=== PATIENT | male | born 1945 | race Caucasian/White ===

== ENCOUNTER 2016-08-05 09:01 | Inpatient (IN) ==
--- NOTE | 2016-08-04 21:04 | Discharge Summary ---
<Lucero Hastings - Last Filed: 08/05/16 09:46> Date of Encounter: 08/05/16 - Discharge Diagnosis (1) Arthritis of knee, right Priority: Primary Status: Acute (2) Cardiac pacemaker Priority: Secondary Status: Chronic (3) HTN (hypertension) Priority: Secondary Status: Chronic Qualifiers: Hypertension type: essential hypertension Qualified Code(s): I10 - Essential (primary) hypertension (4) Obesity Priority: Secondary Status: Acute Qualifiers: Obesity type: unspecified obesity type Obesity severity: unspecified obesity severity Qualified Code(s): E66.9 - Obesity, unspecified (5) DMII (diabetes mellitus, type 2) Priority: Secondary Status: Chronic Qualifiers: Diabetes mellitus complication status: with unspecified complications Diabetes mellitus penitentiary insulin use: unspecified petroleum 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 08/04/16 [Rx] OxyCODONE Immed Rel [Roxicodone 5 MG] 5 - 10 mg PO Q6HR PRN #40 tablet 08/04/16 [Rx] Aspirin 81 mg PO DAILY 08/05/16 [History] Atorvastatin Calcium [Lipitor] 20 mg PO HS 08/05/16 [History] Betamethasone Dipropionate 1 appl TP DAILY 08/05/16 [History] Cholecalciferol (D-3) [Vitamin D] 5,000 unit PO DAILY 08/05/16 [History] Fexofenadine/Pseudoephedrine [Ruth-D 24 Hour Tablet] 1 each PO DAILY PRN [History] GlipiZIDE [Glipizide Xl] 5 mg PO DAILY 08/05/16 [History] Irbesartan [Avapro] 75 mg PO DAILY 08/05/16 [History] OxyCODONE/APAP 5/325 [Percocet 5/325 MG] 1 each PO Q6HR PRN 08/05/16 [History] Ropinirole HCl [Requip] 0.25 mg PO HS 08/05/16 [History] Allergies/Adverse Reactions: Allergies Iodinated Contrast Media - Oral and Adverse Reaction (Verified 08/05/16 09:53) Rash meperidine Adverse Reaction (Verified 08/05/16 09:53) Difficulty Breathing morphine Adverse Reaction (Verified 08/05/16 09:53) Confusion Penicillins [PCN] Adverse Reaction (Verified 08/05/16 09:53) thrush Tetracycline Adverse Reaction (Verified 08/05/16 09:53) Nausea Primary care physician: Hortencia Guillen - Patient Status Disposition: Home, Self-Care Condition: Good - Discharge Instructions Follow Up With: Jesse Andrew MD [Partnered Physician] - 09/03/16 9:45 am Lucero Hastings PAC [Physician Bathing Suit Maker] - 08/14/16 11:00 am Thad Tomlin DO [Partnered Physician] - 11/08/16 2:55 pm Brayan Patel DO [Primary Care Provider] - 10/25/16 2:30 pm Tim Hernandez MD [Partnered Physician] - 10/11/16 10:45 am - Hospital Course Hospital course: Mr. Kaufman is a 70 year old male - Time Spent with Patient Total time spent providing and/or coordinating discharge services: <Jesse Andrew - Last Filed: 08/09/16 06:33> Date of Encounter: 08/09/16 Time of Encounter: 06:32 - Discharge Diagnosis (1) Arthritis of knee, right Priority: Primary Status: Acute (2) Obesity Priority: Secondary Status: Acute Qualifiers: Obesity type: unspecified obesity type Obesity severity: unspecified obesity severity Qualified Code(s): E66.9 - Obesity, unspecified (3) Cardiac pacemaker Priority: Secondary Status: Chronic (4) DMII (diabetes mellitus, type 2) Priority: Secondary Status: Chronic Qualifiers: Diabetes mellitus complication status: with unspecified complications 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 plant operator insulin use status Qualified Code(s): E11.8 - Type 2 diabetes mellitus with unspecified complications (5) HTN (hypertension) Priority: Secondary Status: Chronic Qualifiers: Hypertension type: essential hypertension Qualified Code(s): I10 - Essential (primary) hypertension (6) Thyroid disorder Priority: Secondary Status: Chronic (7) Acute blood loss anemia Priority: Primary Status: Acute Primary care physician: Hortencia Gulilen - Patient Status Functional capacity at discharge: uses cane/walker Overall status at discharge: patient is progressing back to baseline - Hospital Course Hospital course: Mr. Kaufman is a 70 year old male The patient had an uneventful postoperative course. They received antibiotics and physical therapy and were discharged in stable condition. There will follow -up in the office in 2 weeks. Patient had some postoperative bleeding which resolved discharge aspirin DVT prophylaxis - Time Spent with Patient Total time spent providing and/or coordinating discharge services:
--- NOTE | 2016-08-05 09:18 | History & Physical Report ---
Date of Encounter: 08/05/16 Time of Encounter: 09:18 24 Hour HP Update - Instructions Instructions: If the History and Physical is less than 30 days old and was completed prior to A.M. admission and or procedure and has NOT been updated on calendar day of procedure please complete this update prior to performing procedure. - Update Patient reports changes in Medical Condition: No Changes in assessment/condition: No Changes in Medication: No Preop tests/diagnostics Reviewed: Yes Surgery Remains Indicated: Yes Consent for Planned Operative Procedure(s) Verified: Yes - Pre-Operative Checklist Preoperative Checklist Indicated: No Prophylactic Antibiotic Ordered: Yes Is VTE Prophylaxis Indicated?: Yes
[2016-08-05] MEDS ORDERED: Clindamycin 900 MG/50 ML 900 MG/50 ML IV.SOLN IVPB ONE (09:20)
[2016-08-05] MEDS ORDERED: Ringers Solution, Lactated 1,000 ML IVC SCH ×2 (09:30→13:45)
[2016-08-05] MEDS ORDERED: Famotidine 20 MG/2 ML VIAL IVP ONE (10:16)
--- NOTE | 2016-08-05 10:19 | Anesthesia Evaluation PreOp ---
Date of Encounter: 08/05/16 Time of Encounter: 10:15 - Past History Planned Operation: Rt TKA Cardiac History: HTN, Hyperlipidemia, Arrhythmia (Suman Arrhythmia), Pacemaker/ ICD (Last interrogated ) Pulmonary History: Denies Any Significant HX BENEFITS SPECIALIST History: Denies Any Significant HX Other Medical History: Renal (CKD), Diabetes Type II (Accu check 111), GERD Anesthesia History: No Prior Anesthetic Complications Alcohol Use: none Drug use: none Medications and Allergies Allopurinol [Zyloprim 300 MG] 300 mg PO DAILY 07/20/15 [History] Levothyroxine [Synthroid] 100 mcg PO 0630 07/20/15 [History] Prochlorperazine Maleate [Compazine] 10 mg PO Q8HR PRN 07/20/15 [History] Aspirin Enteric Coated [Aspirin EC] 325 mg PO DAILY #21 tablet. 08/04/16 [Rx] OxyCODONE Immed Rel [Roxicodone 5 MG] 5 - 10 mg PO Q6HR PRN #40 tablet 08/04/16 [Rx] Aspirin 81 mg PO DAILY 08/05/16 [History] Atorvastatin Calcium [Lipitor] 20 mg PO HS 08/05/16 [History] Cholecalciferol (D-3) [Vitamin D] 5,000 unit PO DAILY 08/05/16 [History] Fexofenadine/Pseudoephedrine [Ruth-D 24 Hour Tablet] 1 each PO DAILY PRN [History] GlipiZIDE [Glipizide Xl] 5 mg PO DAILY 08/05/16 [History] Irbesartan [Avapro] 75 mg PO DAILY 08/05/16 [History] OxyCODONE/APAP 5/325 [Percocet 5/325 MG] 1 each PO Q6HR PRN 08/05/16 [History] Ropinirole HCl [Requip] 0.25 mg PO HS 08/05/16 [History] Allergies Iodinated Contrast Media - Oral and Adverse Reaction (Verified 08/05/16 09:53) Rash meperidine Adverse Reaction (Verified 08/05/16 09:53) Difficulty Breathing morphine Adverse Reaction (Verified 08/05/16 09:53) Confusion Penicillins [PCN] Adverse Reaction (Verified 08/05/16 09:53) thrush Tetracycline Adverse Reaction (Verified 08/05/16 09:53) Nausea - Meds/Allergy Pre-op Review Medications Reviewed: Yes Allergies Reviewed: Yes Beta Blockers on Current Med List: No Anesthesia Results - Labs Laboratory Tests 08/01/16 08/01/16 08/01/16 09:30 09:30 09:30 Hgb 14.5 Hct 43.4 Plt Count 199 PT 11.4 Sodium 141 Potassium 4.1 BUN 19 Creatinine 1.17 - Imaging EKG: report reviewed (Electronic Atrial Pacemaker) Anesthesia Exam O2 Sat Height 1.75 m Height 1.75 m Height 1.75 m Weight 105.233 kg Weight 105.233 kg Weight 105.233 kg O2 Sat by Pulse Oximetry 96 Vital Signs Temp Pulse Resp BP Pulse Ox 98.8 F 75 18 139/87 96 08/05/16 09:23 08/05/16 09:23 08/05/16 09:23 08/05/16 09:23 08/05/16 09:23 Height: 5'9 Weight: 232 lbs NPO (# of Hours): MN - HEENT Pupil (Motor): Pupils equal, EOMI Mallampati: II Teeth: Normal Oral Opening: Greater than 3 - BENEFITS SPECIALIST LOC: Oriented BENEFITS SPECIALIST Motor: Normal RUE, Normal LUE, Normal RLE, Normal LLE, Normal Face BENEFITS SPECIALIST Sensory: Normal: RUE, LUE, RLE, LLE, Face - Cardiac Rhythm: Regular Murmur: None JVD: No Carotid Bruit: No - Pulmonary Breath Sounds: bilateral Clear Respiratory Effort: Symmetrical Anesthesia Assess/Plan ASA Score: 3 (DM HTN Pacemaker) Modified Donald Scale for Level of Consciousness: Cooperative, oriented, and tranquil Anesthetic Plan: General, Regional Monitoring Plan: Standard Monitors Recovery Plan: PACU (Discussed GA and RSA, agrees to proceed)
[2016-08-05] MEDS ORDERED: *HR* Propofol 200 MG/20 ML VIAL IVP ONE (10:21)
[2016-08-05] MEDS ORDERED: *HR* FentaNYL (PF) 100 MCG/2 ML VIAL ONE ×2 (10:21→11:34)
[2016-08-05] MEDS ORDERED: *HR* Midazolam HCl 2 MG/2 ML VIAL ONE (10:21)
[2016-08-05] MEDS ORDERED: Tetracaine/PF 20 MG/2 ML AMPUL SPINA ONE (11:11)
--- NOTE | 2016-08-05 11:52 | Anesthesia Procedures ---
Date of Encounter: 08/05/16 Time of Encounter: :18 Procedures: Anesthesia - Nerve Block Procedure Date: 08/05/16 Time: 11:18 Surgical Procedure: right total knee Checklist: Correct Patient Identifier, Correct procedure, History checked Correct side: Right Blood Thinner: No Monitor Applied: EKG, BP, Pulse Oximetry Supplemental Oxygen via Nasal Cannula (L/min): 2 Sedation: Versed (mg): 2 Sedation: Fentanyl (mcg): 100 Indication: Post Op Analgesia Pre-op Neuro Deficits: No Block Type: Femoral Catheter placed: No Sterile Technique: Yes Ultrasound used: Yes Anatomy identified: Yes Visual spread of Local: Yes Neuro Stimulation: Yes Nerve Stimulator Range: 0.2 - 0.4 mA Blood on Needle Aspiration: No Smooth Injection of Local: Yes Pain with Injection of Local: No Prep: Chlorhexadine Needle: 22 x 50 mm Stimuplex Local: Ropivacaine (30ml 0.5%) Volume (cc): 30 Number of Attempts: 1 Complications: None/effective block Vitals: vss
--- NOTE | 2016-08-05 12:19 | Orthopedic Operative Note ---
Date of procedure: 08/05/16 Pre-op diagnosis: Right knee arthritis Post-op diagnosis: same Procedure: Procedure: Right Total knee replacement Estimated blood loss: 200 cc Hardware: Arthrex Femur: 7 Tibia: 7 PS insert:12 Patella:37 Exam Under anesthesia: Full motion anterior instability no posterior or varus or valgus Procedural Notes: Patient noted to have grade 3 arthritic changes medial compartment lateral compartment complete ACL tear. Operative procedure: The patient was brought to the operating room and placed on the operating room table. After general anesthesia was administered the operative knee was examined. Findings were noted in the exam under anesthesia. The operative extremity was prepped and draped in sterile surgical fashion. The patient received IV antibiotics prior to skin incision. A standard midline incision was made centered over the patella. The incision was made through the skin and subcutaneous tissue. A medial parapatellar tendon approach was performed. Care was taken to preserve tissue along the medial aspect of the patella. And to protect the patella tendon. The deep MCL was released off the medial tibia. The infra patella fat pad was excised. Knee was brought into flexion. Patient noted to have grade 3 arthritic changes medial compartment lateral compartment. The entry hole was made for the intramedullary femoral guide. The guide was seated in 6 degrees of valgus. Anterior cut was made followed by the distal cut. The ACL was torn the PCL the medial and the lateral menisci were excised. The tibia was subluxed forward. The entry hole was made for the intramedullary tibial guide. Guide was seated to resect 2 mm off the more abnormal side. The knee was brought into flexion the distal femur was sized to a 7. The femoral guide was seated, the anterior cut was made followed by the posterior condylar cut, followed by the chamfer cuts. The finishing guide was seated the box cut was made and the lug holes were drilled. The tibia was sized to a 7, the tibial tray was seated and prepared with the large drill followed by the fin cutter. Trial reduction revealed full extension no varus valgus instability with the appropriate 12 PS [place]. The patella was everted and cut was made at the level of the insertion of the quadriceps and patella tendon. The patella was sized to a 40 the guide was seated and the lug holes are drilled. Trial reduction revealed excellent patella tracking. All trial components were removed all bony surfaces were irrigated. The tibia was cemented first followed by the femur. The 12 PS [place] was seated and the knee was brought into full extension. The patella was cemented and held in place with the patellar holding clamp. After the cement had hardened, the knee sat for 2 minutes with a Betadine saline solution. The knee was then irrigated out with 2 L of pulse irrigation. The extensor mechanism was closed with #2 FiberWire suture and #2 PDS suture. The subcutaneous tissue was then irrigated and closed deep with #1 PDS suture superficially with 0 PDS suture and skin was closed with skin raj and Dermabond. The patient was then placed in a sterile dressing and a postoperative brace extubated and transferred to recovery room in stable condition. Anesthesia: RODRI Surgeon: Jesse Andrew Gps Navigation Installer: Lucero Hastings Condition: stable Disposition: PACU
[2016-08-05] MEDS ORDERED: Ondansetron 4 MG/2 ML VIAL ONE (12:29)
[2016-08-05] MEDS ORDERED: Dexamethasone 4 MG/ML VIAL ONE (12:29)
[2016-08-05] MEDS: *HR* HYDROmorphone (PF) 1 MG/ML SYRINGE IVP PRN ×5 (12:59→16:05)
[2016-08-05 13:08] LABS: Hemoglobin 13.5 g/dL (12.9-16.9)
[2016-08-05] MEDS ORDERED: Loratadine/Pseudophed (12 HR) 1 EACH TABLET PO PRN (13:45)
[2016-08-05] MEDS ORDERED: D5% in Water 1,000 ML IV PRN (13:45)
[2016-08-05] MEDS ORDERED: Temazepam 15 MG CAPSULE PO PRN (13:45)
[2016-08-05] MEDS ORDERED: *HR* OxyCODONE Immed Rel 5 MG TABLET PO PRN (13:45)
[2016-08-05] MEDS ORDERED: Albuterol Neb 1.25 MG/3 ML VIAL IH ONE (13:45)
[2016-08-05] MEDS ORDERED: Acetaminophen 325 MG TABLET PO PRN (13:45)
[2016-08-05] MEDS ORDERED: Dextrose Gel 15 GM PO PRN ×2 (13:45)
[2016-08-05] MEDS ORDERED: Naloxone 0.4 MG/ML INJ IVP PRN (13:45)
[2016-08-05] MEDS ORDERED: Sennosides 8.6 MG TABLET PO PRN (13:45)
[2016-08-05] MEDS ORDERED: *HR* Dextrose 50 % in Water (Syg) 50 ML SYRINGE IVP PRN (13:45)
[2016-08-05] MEDS ORDERED: MOM Conc 10 ML UD.LIQ PO PRN (13:45)
--- NOTE | 2016-08-05 14:00 | Anesthesia Evaluation Post Op ---
Date of Encounter: 08/05/16 Time of Encounter: 14:00 - Vital Signs Vital Signs: Vital Signs/O2 Sat/Glucose, Most Current Temp Pulse Resp BP Pulse Ox 08/05/16 13:50 97.3 F L 60 16 133/67 96 08/05/16 13:42 60 16 123/71 97 08/05/16 13:32 60 16 123/68 97 08/05/16 13:22 97.3 F L 60 16 124/66 96 08/05/16 13:12 60 16 129/73 96 08/05/16 12:52 61 16 133/68 96 08/05/16 12:42 97.3 F L 68 16 138/68 96 08/05/16 11:24 62 13 140/80 95 08/05/16 11:06 67 16 150/83 95 - Lungs Lungs: Clear Ascult./Percussion - Airway Airway: Non-obstructed - Cardiovascular Regular Rate - Mental Status Mental Status: Alert & Oriented, Answers Appropriately - Pain Pain Scale: 1 - Nausea Vomiting Nausea Vomiting: Not Present - Hydration Hydration: Ice chips - Discharge PostOp Status: Transfer Patient to floor
[2016-08-05] MEDS: Insulin LISPRO 300 UNITS/3 ML VIAL SQ SCH ×2 (14:36→17:26)
[2016-08-05] MEDS: *HR* OxyCODONE Immed Rel 5 MG TABLET PO PRN ×3 (14:40→23:03)
[2016-08-05] MEDS: *HR* Enoxaparin 30 MG/0.3 ML SYRINGE SQ SCH (17:26)
[2016-08-05] MEDS ORDERED: *HR* Enoxaparin 30 MG/0.3 ML SYRINGE SQ SCH (18:00)
[2016-08-05] MEDS: rOPINIRole 0.25 MG TABLET PO SCH (20:26)
[2016-08-05] MEDS: Clindamycin 900 MG/50 ML 900 MG/50 ML IV.SOLN IVPB SCH (20:27)
[2016-08-06] MEDS: *HR* HYDROmorphone (PF) 1 MG/ML SYRINGE IVP PRN ×5 (00:19→20:44)
[2016-08-06] MEDS: *HR* OxyCODONE Immed Rel 5 MG TABLET PO PRN ×5 (03:09→22:07)
[2016-08-06] MEDS: Clindamycin 900 MG/50 ML 900 MG/50 ML IV.SOLN IVPB SCH (03:09)
[2016-08-06] MEDS: *HR* Enoxaparin 30 MG/0.3 ML SYRINGE SQ SCH ×2 (05:11→17:10)
[2016-08-06 06:15] LABS: Hematocrit 36.2 % (37.5-50.1); Hemoglobin 11.9 g/dL (12.9-16.9)
--- NOTE | 2016-08-06 06:40 | Orthopedics Progress Note ---
Date of Encounter: 08/06/16 Time of Encounter: 06:40 - Assessment and Plan (1) Arthritis of knee, right Current Visit: Yes Status: Acute (2) Obesity Current Visit: Yes Status: Acute Qualifiers: Obesity type: unspecified obesity type Obesity severity: unspecified obesity severity Qualified Code(s): E66.9 - Obesity, unspecified (3) Cardiac pacemaker Current Visit: Yes Status: Chronic (4) DMII (diabetes mellitus, type 2) Current Visit: Yes Status: Chronic Qualifiers: Diabetes mellitus complication status: with unspecified complications Diabetes mellitus group home insulin use: unspecified group home insulin use status Qualified Code(s): E11.8 - Type 2 diabetes mellitus with unspecified complications (5) HTN (hypertension) Current Visit: Yes Status: Chronic Qualifiers: Hypertension type: essential hypertension Qualified Code(s): I10 - Essential (primary) hypertension (6) Thyroid disorder Current Visit: Yes Status: Chronic Subjective Interval history: Patient was seen this morning doing well without complaints. Afebrile vital signs stable. Operative extremity: Neurovascularly intact Dressing clean dry and intact Calves nontender Assessment and plan: Continue with postoperative care hematocrit 36 Objective Vital signs: Vital Signs Temp Pulse Resp BP Pulse Ox 08/06/16 06:32 98.2 F 70 16 119/65 93 L 08/06/16 03:54 98.3 F 74 16 121/67 98 08/05/16 23:58 98.1 F 76 16 126/67 98 08/05/16 20:00 98.4 F 71 16 103/60 94 L 08/05/16 18:50 95 08/05/16 17:40 16 97 08/05/16 16:41 16 97 08/05/16 16:03 97.9 F 72 16 134/75 95 08/05/16 15:20 97.8 F 69 18 129/72 95 08/05/16 14:35 97.8 F 63 14 117/61 95 08/05/16 14:05 98.1 F 62 14 125/71 98 08/05/16 13:50 97.3 F L 60 16 133/67 96 08/05/16 13:42 60 16 123/71 97 08/05/16 13:32 60 16 123/68 97 08/05/16 13:22 97.3 F L 60 16 124/66 96 08/05/16 13:12 60 16 129/73 96 08/05/16 12:52 61 16 133/68 96 08/05/16 12:42 97.3 F L 68 16 138/68 96 08/05/16 11:24 62 13 140/80 95 08/05/16 11:06 67 16 150/83 95 08/05/16 09:23 98.8 F 75 18 139/87 96 Intake and Output 08/05/16 08/05/16 08/06/16 15:59 23:59 07:59 Intake Total 50 / 50 350 / 350 50 / 50 Output Total 200 / 200 Balance -150 / -150 350 / 350 50 / 50 Intake: IV Fluids 50 / 50 50 / 50 50 / 50 Cleocin 900 MG/50 ML 900 50 / 50 50 / 50 50 / 50 mg In 50 ml @ 50 mls/hr IVPB Q8H [facility] Rx#: [id number] Oral 300 / 300 Output: Estimated Blood Loss 200 / 200 Other: Meal Dinner Percent of Meal Consumed 25% Weight 105.233 kg Blood Glucose* 114 194 - Labs CBC & BMP: 08/06/16 05:19 Labs: Abnormal lab results Hgb 11.9 g/dL (12.9-16.9) L D 08/06/16 05:19 Hct 36.2 % (37.5-50.1) L 08/06/16 05:19 POC Glucose 194 (58-89) H 08/05/16 19:45 - VTE Documentation of Mechanical Device: Venous foot pump, device Consult Discharge Plan - Plan Referrals: Brayan Patel DO [Primary Care Provider] -
[2016-08-06 06:58] LABS: BUN/Creatinine Ratio 20 (6-26); Blood Urea Nitrogen 25 mg/dL (8-26); Calcium 9.1 mg/dL (8.6-10.8); Carbon Dioxide 22 mEq/L (19-29); Chloride 105 mEq/L (98-109); Glucose 159 mg/dL (70-99); Osmolality,Calculated 290 (280-300); Potassium 4.4 mEq/L (3.5-4.5); Sodium 136 mEq/L (136-145); eGFR For African Americans > 60 (> 60); eGFR For Non-African Americans 56 (> 60)
[2016-08-06] MEDS: Insulin LISPRO 300 UNITS/3 ML VIAL SQ SCH ×3 (09:22→18:23)
[2016-08-06] MEDS: *HR* GlipiZIDE XL (24 HR) 2.5 MG TABLET PO SCH (09:52)
[2016-08-06] MEDS: Cholecalciferol (D-3) 1,000 UNIT TABLET PO SCH (09:52)
[2016-08-06] MEDS: Aspirin 81 MG TAB.CHEW PO SCH (09:53)
[2016-08-06] MEDS: BETAMETHASONE DIPROPIONATE TP SCH (09:55)
[2016-08-06] MEDS: rOPINIRole 0.25 MG TABLET PO SCH (20:45)
[2016-08-07] MEDS: *HR* OxyCODONE Immed Rel 5 MG TABLET PO PRN ×4 (03:49→20:37)
[2016-08-07] MEDS: *HR* HYDROmorphone (PF) 1 MG/ML SYRINGE IVP PRN ×5 (05:00→22:58)
[2016-08-07] MEDS: *HR* Enoxaparin 30 MG/0.3 ML SYRINGE SQ SCH ×2 (05:01→17:54)
[2016-08-07 05:02] LABS: Bilirubin,Urine Negative (Negative); Blood,Urine Negative (Negative); Clarity,Urine Clear (Clear); Color,Urine Yellow (Yellow); Glucose,Urine (UA) Normal (Normal); Ketones,Urine Negative (Negative); Leukocyte Esterase,Urine Negative (Negative); Nitrite,Urine Negative (Negative); PH,Urine 5.5 pH Units (5.0-8.0); Protein,Urine Negative (Neg-Trace); Specific Gravity,Urine 1.022 (1.010-1.025); Urobilinogen,Urine Normal (Normal)
[2016-08-07 06:44] LABS: Basophils # 0.1 K/mcL (0.0-0.2); Basophils % 0.4 %; Eosinophils # 0.1 K/mcL (0.0-0.6); Eosinophils % 0.9 %; Hemoglobin 10.7 g/dL (12.9-16.9); Immature Granulocytes % 0.4 % (0-4); Lymphocytes # 2.2 K/mcL (0.6-4.6); Mean Corpuscular HGB Conc 32.4 g/dL (31.6-35.5); Mean Corpuscular Hemoglobin 30.2 pg (28.0-33.3); Mean Corpuscular Volume 93.2 fL (83.0-100.0); Mean Platelet Volume 11.7 fL (9.4-12.4); Monocytes # 1.7 K/mcL (0.0-1.3); Monocytes % 12.6 %; Neutrophils # 9.5 K/mcL (1.6-8.9); Platelet Count 142 K/mcL (140-400); Red Blood Count 3.54 M/mcL (4.19-5.50); Red Cell Distribution Width 14.4 % (11.5-14.5); Segmented Neutrophils % 69.7 %
[2016-08-07 06:53] LABS: BUN/Creatinine Ratio 22 (6-26); Blood Urea Nitrogen 26 mg/dL (8-26); Carbon Dioxide 23 mEq/L (19-29); Chloride 106 mEq/L (98-109); Glucose 141 mg/dL (70-99); Osmolality,Calculated 293 (280-300); Potassium 4.2 mEq/L (3.5-4.5); Sodium 138 mEq/L (136-145); eGFR For African Americans > 60 (> 60); eGFR For Non-African Americans > 60 (> 60)
--- NOTE | 2016-08-07 07:45 | Orthopedics Progress Note ---
Date of Encounter: 08/07/16 Time of Encounter: 07:45 - Assessment and Plan (1) Arthritis of knee, right Current Visit: Yes Status: Acute (2) Obesity Current Visit: Yes Status: Acute Qualifiers: Obesity type: unspecified obesity type Obesity severity: unspecified obesity severity Qualified Code(s): E66.9 - Obesity, unspecified (3) Cardiac pacemaker Current Visit: Yes Status: Chronic (4) DMII (diabetes mellitus, type 2) Current Visit: Yes Status: Chronic Qualifiers: Diabetes mellitus complication status: with unspecified complications Diabetes mellitus fci insulin use: unspecified fci insulin use status Qualified Code(s): E11.8 - Type 2 diabetes mellitus with unspecified complications (5) HTN (hypertension) Current Visit: Yes Status: Chronic Qualifiers: Hypertension type: essential hypertension Qualified Code(s): I10 - Essential (primary) hypertension (6) Thyroid disorder Current Visit: Yes Status: Chronic Subjective Interval history: Patient was seen this morning doing well without complaints. Afebrile vital signs stable. Operative extremity: Neurovascularly intact Dressing clean dry and intact Calves nontender Assessment and plan: Continue with postoperative care hematocrit 33 Objective Vital signs: Vital Signs Temp Pulse Resp BP Pulse Ox 08/07/16 07:11 98.7 F 69 16 150/65 94 L 08/07/16 03:55 99.7 F H 65 16 145/67 95 08/07/16 00:00 100.4 F H 70 15 124/57 91 L 08/06/16 22:09 102.2 F H 68 16 136/62 94 L 08/06/16 21:10 102.6 F H 70 71 121/60 94 L 08/06/16 18:51 99.5 F 08/06/16 16:00 100.6 F H 67 18 140/69 94 L 08/06/16 10:57 98.2 F 75 16 114/60 93 L Intake and Output 08/06/16 08/06/16 08/07/16 15:59 23:59 07:59 Intake Total 1000 / 1000 Balance 1000 / 1000 Intake: IV Fluids 1000 / 1000 Lactated Ringers 1,000 ML 1000 / 1000 @ 75 mls/hr IVC .[id number] [facility] Rx#:[id number] Other: Blood Glucose* 149 141 161 - Labs CBC & BMP: 08/07/16 06:18 08/07/16 06:18 Labs: Abnormal lab results WBC 13.6 K/mcL (4.3-11.1) H 08/07/16 06:18 RBC 3.54 M/mcL (4.19-5.50) L 08/07/16 06:18 Hgb 10.7 g/dL (12.9-16.9) L 08/07/16 06:18 Hct 33.0 % (37.5-50.1) L 08/07/16 06:18 Neutrophils # 9.5 K/mcL (1.6-8.9) H 08/07/16 06:18 Monocytes # 1.7 K/mcL (0.0-1.3) H 08/07/16 06:18 Glucose 141 mg/dL (70-99) H 08/07/16 06:18 POC Glucose 141 (58-89) H 08/06/16 21:13 - VTE Documentation of Mechanical Device: Venous foot pump, device Consult Discharge Plan - Plan Referrals: Jesse Andrew MD [Partnered Physician] - 09/03/16 9:45 am Lucero Hastings PAC [Physician Stopperer Assembler] - 08/14/16 11:00 am Thad Tomlin DO [Partnered Physician] - 11/08/16 2:55 pm Brayan Patel DO [Primary Care Provider] - 10/25/16 2:30 pm Tim Hernandez MD [Partnered Physician] - 10/11/16 10:45 am
[2016-08-07] MEDS: Aspirin 81 MG TAB.CHEW PO SCH (08:11)
[2016-08-07] MEDS: Insulin LISPRO 300 UNITS/3 ML VIAL SQ SCH ×3 (08:11→17:54)
[2016-08-07] MEDS: Cholecalciferol (D-3) 1,000 UNIT TABLET PO SCH (08:11)
[2016-08-07] MEDS: BETAMETHASONE DIPROPIONATE TP SCH (08:12)
[2016-08-07] MEDS: *HR* GlipiZIDE XL (24 HR) 2.5 MG TABLET PO SCH (08:12)
[2016-08-07] MEDS: Ondansetron 4 MG/2 ML VIAL IVP PRN (09:08)
[2016-08-07] MEDS: rOPINIRole 0.25 MG TABLET PO SCH (20:38)
[2016-08-08] MEDS: *HR* OxyCODONE Immed Rel 5 MG TABLET PO PRN ×4 (02:23→18:30)
[2016-08-08] MEDS: *HR* Enoxaparin 30 MG/0.3 ML SYRINGE SQ SCH (05:39)
[2016-08-08] MEDS: *HR* HYDROmorphone (PF) 1 MG/ML SYRINGE IVP PRN ×3 (06:32→21:08)
[2016-08-08] MEDS: BETAMETHASONE DIPROPIONATE TP SCH (07:41)
[2016-08-08] MEDS: Aspirin 81 MG TAB.CHEW PO SCH (07:41)
[2016-08-08] MEDS: *HR* GlipiZIDE XL (24 HR) 2.5 MG TABLET PO SCH (07:41)
[2016-08-08] MEDS: Cholecalciferol (D-3) 1,000 UNIT TABLET PO SCH (07:41)
[2016-08-08] MEDS: Insulin LISPRO 300 UNITS/3 ML VIAL SQ SCH ×3 (07:42→16:58)
--- NOTE | 2016-08-08 08:22 | Orthopedics Progress Note ---
Date of Encounter: 08/08/16 Time of Encounter: 08:21 - Assessment and Plan (1) Arthritis of knee, right Current Visit: Yes Status: Acute (2) Obesity Current Visit: Yes Status: Acute Qualifiers: Obesity type: unspecified obesity type Obesity severity: unspecified obesity severity Qualified Code(s): E66.9 - Obesity, unspecified (3) Cardiac pacemaker Current Visit: Yes Status: Chronic (4) DMII (diabetes mellitus, type 2) Current Visit: Yes Status: Chronic Qualifiers: Diabetes mellitus complication status: with unspecified complications Diabetes mellitus prison insulin use: unspecified prison insulin use status Qualified Code(s): E11.8 - Type 2 diabetes mellitus with unspecified complications (5) HTN (hypertension) Current Visit: Yes Status: Chronic Qualifiers: Hypertension type: essential hypertension Qualified Code(s): I10 - Essential (primary) hypertension (6) Thyroid disorder Current Visit: Yes Status: Chronic (7) Acute blood loss anemia Current Visit: Yes Status: Acute Subjective Interval history: Patient was seen this morning with significant bleeding no new injury Afebrile vital signs stable. Operative extremity: Neurovascularly intact Bloody drainage midpole of incision staple added Calves nontender Assessment and plan: Continue with postoperative care check H&H Objective Vital signs: Vital Signs Temp Pulse Resp BP Pulse Ox 08/08/16 07:23 97.9 F 65 16 128/58 94 L 08/08/16 03:51 99.2 F 65 18 150/67 93 L 08/07/16 23:32 99.8 F H 67 18 160/55 93 L 08/07/16 19:03 99.4 F 75 18 158/67 94 L 08/07/16 15:46 98.0 F 72 18 137/68 75 L 08/07/16 11:05 64 16 146/66 94 L Intake and Output 08/07/16 08/08/16 08/08/16 23:59 07:59 15:59 Intake Total 470 / 470 0 / 0 Output Total 0 / 0 Balance 470 / 470 0 / 0 Intake: Oral 470 / 470 0 / 0 Output: Urine 0 / 0 Other: Meal Dinner Percent of Meal Consumed 30% # Voids 1 Blood Glucose* 129 146 - Labs CBC & BMP: 08/07/16 06:18 08/07/16 06:18 Labs: Abnormal lab results WBC 13.6 K/mcL (4.3-11.1) H 08/07/16 06:18 RBC 3.54 M/mcL (4.19-5.50) L 08/07/16 06:18 Hgb 10.7 g/dL (12.9-16.9) L 08/07/16 06:18 Hct 33.0 % (37.5-50.1) L 08/07/16 06:18 Neutrophils # 9.5 K/mcL (1.6-8.9) H 08/07/16 06:18 Monocytes # 1.7 K/mcL (0.0-1.3) H 08/07/16 06:18 Glucose 141 mg/dL (70-99) H 08/07/16 06:18 POC Glucose 129 (58-89) H 08/07/16 20:41 - VTE Documentation of Mechanical Device: Venous foot pump, device Consult Discharge Plan - Plan Referrals: Jesse Adnrew MD [Partnered Physician] - 09/03/16 9:45 am Lucero Hastings PAC [Physician Full Stack Engineer] - 08/14/16 11:00 am Thad Tomlin DO [Partnered Physician] - 11/08/16 2:55 pm Brayan Patel DO [Primary Care Provider] - 10/25/16 2:30 pm Tim Hernandez MD [Partnered Physician] - 10/11/16 10:45 am
[2016-08-08 08:39] LABS: Hematocrit 31.8 % (37.5-50.1); Hemoglobin 10.4 g/dL (12.9-16.9)
[2016-08-08] MEDS: Ondansetron 4 MG/2 ML VIAL IVP PRN ×2 (10:40→18:33)
[2016-08-08] MEDS: rOPINIRole 0.25 MG TABLET PO SCH (21:08)
--- NOTE | 2016-08-09 06:34 | Orthopedics Progress Note ---
Date of Encounter: 08/09/16 Time of Encounter: 06:33 - Assessment and Plan (1) Arthritis of knee, right Current Visit: Yes Status: Acute (2) Obesity Current Visit: Yes Status: Acute Qualifiers: Obesity type: unspecified obesity type Obesity severity: unspecified obesity severity Qualified Code(s): E66.9 - Obesity, unspecified (3) Cardiac pacemaker Current Visit: Yes Status: Chronic (4) DMII (diabetes mellitus, type 2) Current Visit: Yes Status: Chronic Qualifiers: Diabetes mellitus complication status: with unspecified complications Diabetes mellitus nursing home insulin use: unspecified nursing home insulin use status Qualified Code(s): E11.8 - Type 2 diabetes mellitus with unspecified complications (5) HTN (hypertension) Current Visit: Yes Status: Chronic Qualifiers: Hypertension type: essential hypertension Qualified Code(s): I10 - Essential (primary) hypertension (6) Thyroid disorder Current Visit: Yes Status: Chronic (7) Acute blood loss anemia Current Visit: Yes Status: Acute Subjective Interval history: Patient was seen this morning with significant bleeding no new injury Afebrile vital signs stable. Operative extremity: Neurovascularly intact Dressing clean dry and intact Calves nontender Assessment and plan: Continue with postoperative care hematocrit 31 discharged today Objective Vital signs: Vital Signs Temp Pulse Resp BP Pulse Ox 08/09/16 00:10 99.0 F 66 17 155/72 94 L 08/08/16 20:00 99.5 F 75 16 149/64 96 08/08/16 15:04 99.9 F H 67 18 146/60 98 08/08/16 11:13 99.2 F 62 16 147/66 93 L 08/08/16 07:23 97.9 F 65 16 128/58 94 L Intake and Output 08/08/16 08/08/16 08/09/16 15:59 23:59 07:59 Intake Total 240 / 240 350 / 350 Output Total 275 / 275 Balance 240 / 240 75 / 75 Intake: Oral 240 / 240 350 / 350 Output: Urine 275 / 275 Other: Meal Breakfast Percent of Meal Consumed 95% # Voids 2 Blood Glucose* 119 120 - Labs CBC & BMP: 08/08/16 08:30 08/07/16 06:18 Labs: Abnormal lab results WBC 13.6 K/mcL (4.3-11.1) H 08/07/16 06:18 RBC 3.54 M/mcL (4.19-5.50) L 08/07/16 06:18 Hgb 10.4 g/dL (12.9-16.9) L 08/08/16 08:30 Hct 31.8 % (37.5-50.1) L 08/08/16 08:30 Neutrophils # 9.5 K/mcL (1.6-8.9) H 08/07/16 06:18 Monocytes # 1.7 K/mcL (0.0-1.3) H 08/07/16 06:18 Glucose 141 mg/dL (70-99) H 08/07/16 06:18 POC Glucose 120 (58-89) H 08/08/16 20:45 - VTE Documentation of Mechanical Device: Venous foot pump, device Consult Discharge Plan - Plan Referrals: Jesse Andrew MD [Partnered Physician] - 09/03/16 9:45 am Lucero Hastings PAC [Physician Tray Server] - 08/14/16 11:00 am Thad Tomlin DO [Partnered Physician] - 11/08/16 2:55 pm Brayan Patel DO [Primary Care Provider] - 10/25/16 2:30 pm Tim Hernandez MD [Partnered Physician] - 10/11/16 10:45 am
[2016-08-09] MEDS: Insulin LISPRO 300 UNITS/3 ML VIAL SQ SCH (07:24)
[2016-08-09] MEDS: *HR* GlipiZIDE XL (24 HR) 2.5 MG TABLET PO SCH (07:56)
[2016-08-09] MEDS: Cholecalciferol (D-3) 1,000 UNIT TABLET PO SCH (07:56)
[2016-08-09] MEDS: Aspirin 81 MG TAB.CHEW PO SCH (07:57)
[2016-08-09] MEDS: *HR* OxyCODONE Immed Rel 5 MG TABLET PO PRN ×2 (07:57→11:45)
[2016-08-09] MEDS: BETAMETHASONE DIPROPIONATE TP SCH (08:01)
[2016-08-09 08:54] LABS: Hematocrit 31.6 % (37.5-50.1); Hemoglobin 10.2 g/dL (12.9-16.9)
[2016-08-09 09:08] LABS: BUN/Creatinine Ratio 20 (6-26); Blood Urea Nitrogen 24 mg/dL (8-26); Calcium 9.6 mg/dL (8.6-10.8); Carbon Dioxide 24 mEq/L (19-29); Chloride 105 mEq/L (98-109); Glucose 142 mg/dL (70-99); Osmolality,Calculated 296 (280-300); Potassium 3.9 mEq/L (3.5-4.5); Sodium 140 mEq/L (136-145); eGFR For African Americans > 60 (> 60); eGFR For Non-African Americans 59 (> 60)
[2016-08-09 11:16] VITALS: BP 154/68
== END 2016-08-09 12:31 | disposition home or self-care (01) | DRG 470 ==
LOC: SAMDAY 09:01 → 3NENU 13:47
PROVIDERS: ADMIT Orthopaedic Surgery; ATTEND Orthopaedic Surgery

== ENCOUNTER 2017-10-29 04:18 | Observation (INO) ==
[2017-10-29] MEDS ORDERED: Aspirin 81 MG TAB.CHEW PO ONE (04:22)
--- NOTE | 2017-10-29 04:51 | Emergency Department Note ---
Disposition Clinical Impression: Chest pain, rule out acute myocardial infarction Disposition: Admitted As Inpatient Condition: Fair Referrals: Brayan Patel DO [Primary Care Provider] - Forms: ED Satisfaction Letter Time of Disposition: 04:52 Chest Pain HPI - General Chief Complaint: ED Chest Pain Stated Complaint: chest pain Time Seen by Provider: 10/29/17 04:22 Source: patient Limitations: no limitations - History of Present Illness HPI Narrative: Alert and oriented nontoxic-appearing 72-year-old male presents for evaluation of nonradiating substernal chest pain. He states his symptoms began approximately one week ago. This past Friday, he presented to [facility] emergency department in [place] for evaluation of this pain. At that time, he underwent laboratory workup including to repeat cardiac enzyme levels which she states normal. He was discharged home with a diagnosis of gastroesophageal reflux disorder and started on Protonix and Carafate. He states that the pain has remained consistent ever since. He states absolutely no relief from the aforementioned medications. He complains of being slightly nauseated but denies any vomiting. He denies any pleuritic component to this chest pain. He does complain of a cough that is productive of scant amounts of clear sputum but denies any hemoptysis. He denies any swelling of the lower extremities. He denies any shortness of breath. He states that after he was awoken by his dog earlier this morning, the pain did increase in severity above and beyond what it had been for the past one week. He denies any known aggravating or alleviating factors. Pt complaint: chest pain Onset (ago): week(s) (1 week) Duration: constant Pain Location: substernal Severity: mild Severity scale (1-10): 1 Quality: heaviness Pain Radiation: none Improves with: nothing Worsens with: nothing Associated symptoms: Reports: nausea, cough. Denies: vomiting, diaphoresis, dyspnea, palpitations, fever Treatments prior to arrival chest pain: other - Related Data Home Medications Medication Instructions Recorded Confirmed Allopurinol [Zyloprim 300 MG] 300 mg PO DAILY 07/20/15 10/29/17 Levothyroxine [Synthroid] 100 mcg PO 0630 07/20/15 10/29/17 Prochlorperazine Maleate 10 mg PO Q8HR PRN 07/20/15 10/29/17 [Compazine] GlipiZIDE [Glipizide Xl] 5 mg PO DAILY 08/05/16 10/29/17 OxyCODONE/APAP 5/325 [Percocet 1 each PO Q6HR PRN 08/05/16 10/29/17 5/325 MG] Ropinirole HCl [Requip] 0.25 mg PO HS 08/05/16 10/29/17 Atorvastatin [Lipitor] 40 mg PO HS 09/27/16 10/29/17 FLUoxetine HCl [Prozac] 20 mg PO DAILY 09/27/16 10/29/17 Aspirin [Adult Aspirin Regimen] 81 mg PO DAILY 10/29/17 10/29/17 Losartan [Cozaar] 25 mg PO DAILY 10/29/17 10/29/17 Allergies Allergy/AdvReac Type Severity Reaction Status Date / Time Iodinated Contrast- Oral and AdvReac Rash Verified 09/27/16 07:24 IV Dye meperidine AdvReac Difficulty Verified 09/27/16 07:24 Breathing morphine AdvReac Confusion Verified 09/27/16 07:24 Penicillins [PCN] AdvReac thrush Verified 09/27/16 07:24 Tetracycline AdvReac Nausea Verified 09/27/16 07:24 All systems ED: reviewed and negative except as stated. Constitutional: Denies: fever, chills, weakness, weight change Eyes: Denies: eye pain, eye discharge, vision change ENT ED: Denies: ear pain, throat pain, dental pain, hearing loss, epistaxis, congestion, dysphagia Cardiovascular: Reports: as per HPI, chest pain. Denies: palpitations, dyspnea on exertion, edema, syncope Respiratory: Reports: as per HPI, cough, sputum production. Denies: dyspnea, wheezes, hemoptysis, stridor Gastrointestinal: Reports: as per HPI, nausea. Denies: abdominal pain, vomiting , diarrhea, constipation, hematemesis, melena, hematochezia Genitourinary: Denies: urgency, dysuria, frequency, hematuria Musculoskeletal: Denies: back pain, neck pain, arthralgia, myalgia Integumentary: Denies: rash, abrasion, lesions Neurological: Denies: headache, weakness, numbness, paresthesias, confusion, abnormal gait, vertigo Psychiatric: Denies: anxiety, depression, suicidal thoughts, homicidal thoughts , auditory hallucinations, visual hallucinations Endocrine: Denies: fatigue Hematological/Lymphatic: Denies: easy bleeding, easy bruising Allergic/Immunologic: Denies: facial swelling, urticaria Chest Pain PMH - Past Medical History Medical history: Reports: arthritis, coronary artery disease, diabetes, fibromyalgia, GERD, hyperlipidemia, hypertension, renal disease, thyroid disease Surgical history: Reports: appendectomy, cholecystectomy, pacemaker Psychiatric history: Reports: no psych history - Social History Smoking Status: Never smoker Alcohol use: Reports: none Drug use: Reports: none Physical Exam - General Limitations: no limitations General appearance: alert, in no apparent distress - Head Head exam: atraumatic, normocephalic, normal inspection - Eye Eye exam: Present: normal appearance, PERRL, EOMI. Absent: nystagmus - ENT ENT exam: mucous membranes moist - Neck Neck exam: Present: normal inspection, full ROM, trachea midline - Chest Chest inspection: Present: normal inspection, symmetric chest wall rise. Absent : tenderness - Respiratory Respiratory exam: Present: normal lung sounds bilaterally. Absent: respiratory distress, wheezes, stridor, accessory muscle use, prolonged expiratory phase - Cardiovascular Cardiovascular exam: Present: regular rate, normal rhythm, normal heart sounds - Abdominal Exam Abdominal exam: Present: soft, Non-Tender, normal bowel sounds - Extremities Exam Extremities exam: Present: normal inspection, full ROM. Absent: tenderness, pedal edema - Neurological Exam Neurological exam: Present: alert, oriented X3 - Psychiatric Psychiatric exam: Present: normal affect, normal mood - Skin Skin exam: Present: warm, dry, intact, normal color. Absent: rash Course Course Narrative: I spoke with Dr. Harding of the Hospital services accepted the patient for admission for further evaluation and treatment this patient's chest pain. I have discussed this plan with Dr. De Los Santos. Dr. De Los Santos has had a face-to- face evaluation with the patient and agrees with this plan. Vital Signs Temperature 98.5 F 10/29/17 04:19 Pulse Rate 80 10/29/17 04:19 Respiratory Rate 18 10/29/17 04:19 Blood Pressure 179/93 10/29/17 04:19 O2 Sat by Pulse Oximetry 96 10/29/17 04:19 Temperature 98.5 F 10/29/17 04:19 Pulse Rate 77 10/29/17 05:30 Respiratory Rate 16 10/29/17 05:30 Blood Pressure 126/89 10/29/17 05:30 O2 Sat by Pulse Oximetry 96 10/29/17 05:30 Oxygen Delivery Oxygen Delivery Nasal Cannula Chest Pain - Medical Records Medical records reviewed: Yes I reviewed the patient's medical records. - Lab Data Lab results reviewed: Yes I reviewed the patient's lab results. Lab results narrative: Abnormal Lab Results 10/29/17 10/29/17 10/29/17 04:22 04:23 04:32 WBC 9.8 RBC 4.87 Hgb 15.1 Hct 44.6 MCV 91.6 MCH 31.0 MCHC 33.9 RDW 14.6 H Plt Count 202 MPV 11.6 Immature Gran % 0.3 Seg Neutrophils % 54.9 Lymphocytes % 33.1 Monocytes % 7.1 Eosinophils % 3.8 Basophils % 0.8 Neutrophils # 5.4 Lymphocytes # 3.3 Monocytes # 0.7 Eosinophils # 0.4 Basophils # 0.1 PT 11.6 INR 1.1 APTT 29.3 Sodium Potassium Chloride Carbon Dioxide BUN Creatinine Est GFR ( Amer) Est GFR (Non-Af Amer) BUN/Creatinine Ratio Glucose Calculated Osmolality Calcium Troponin I B-Natriuretic Peptide 39 10/29/17 04:32 WBC RBC Hgb Hct MCV MCH MCHC RDW Plt Count MPV Immature Gran % Seg Neutrophils % Lymphocytes % Monocytes % Eosinophils % Basophils % Neutrophils # Lymphocytes # Monocytes # Eosinophils # Basophils # PT INR APTT Sodium 141 Potassium 3.5 Chloride 107 Carbon Dioxide 23 BUN 17 Creatinine 1.15 Est GFR ( Amer) > 60 Est GFR (Non-Af Amer) > 60 BUN/Creatinine Ratio 15 Glucose 155 H Calculated Osmolality 297 Calcium 10.3 Troponin I < 0.03 B-Natriuretic Peptide Laboratory Last Values WBC 9.8 K/mcL (4.3-11.1) 10/29/17 04:32 RBC 4.87 M/mcL (4.19-5.50) 10/29/17 04:32 Hgb 15.1 g/dL (12.9-16.9) 10/29/17 04:32 Hct 44.6 % (37.5-50.1) 10/29/17 04:32 MCV 91.6 fL (83.0-100.0) 10/29/17 04:32 MCH 31.0 pg (28.0-33.3) 10/29/17 04:32 MCHC 33.9 g/dL (31.6-35.5) 10/29/17 04:32 RDW 14.6 % (11.5-14.5) H 10/29/17 04:32 Plt Count 202 K/mcL (140-400) 10/29/17 04:32 MPV 11.6 fL (9.4-12.4) 10/29/17 04:32 Immature Gran % 0.3 % (0-4) 10/29/17 04:32 Seg Neutrophils % 54.9 % 10/29/17 04:32 Lymphocytes % 33.1 % 10/29/17 04:32 Monocytes % 7.1 % 10/29/17 04:32 Eosinophils % 3.8 % 10/29/17 04:32 Basophils % 0.8 % 10/29/17 04:32 Neutrophils # 5.4 K/mcL (1.6-8.9) 10/29/17 04:32 Lymphocytes # 3.3 K/mcL (0.6-4.6) 10/29/17 04:32 Monocytes # 0.7 K/mcL (0.0-1.3) 10/29/17 04:32 Eosinophils # 0.4 K/mcL (0.0-0.6) 10/29/17 04:32 Basophils # 0.1 K/mcL (0.0-0.2) 10/29/17 04:32 PT 11.6 Seconds (9.4-12.1) 10/29/17 04:22 INR 1.1 10/29/17 04:22 APTT 29.3 Seconds (26.0-36.0) 10/29/17 04:22 Sodium 141 mEq/L (136-145) 10/29/17 04:32 Potassium 3.5 mEq/L (3.5-5.1) 10/29/17 04:32 Chloride 107 mEq/L (98-107) 10/29/17 04:32 Carbon Dioxide 23 mEq/L (23-29) 10/29/17 04:32 BUN 17 mg/dL (8-23) 10/29/17 04:32 Creatinine 1.15 mg/dL (0.70-1.30) 10/29/17 04:32 Est GFR ( Amer) > 60 (> 60) 10/29/17 04:32 Est GFR (Non-Af Amer) > 60 (> 60) 10/29/17 04:32 BUN/Creatinine Ratio 15 (6-26) 10/29/17 04:32 Glucose 155 mg/dL (70-105) H 10/29/17 04:32 Calculated Osmolality 297 (280-300) 10/29/17 04:32 Calcium 10.3 mg/dL (8.6-10.3) 10/29/17 04:32 Troponin I < 0.03 ng/mL (< 0.04) 10/29/17 04:32 B-Natriuretic Peptide 39 pg/mL (Less than 100) 10/29/17 04:23 Result diagrams: 10/29/17 04:32 10/29/17 04:32 Lab Results 10/29/17 10/29/17 10/29/17 Range/Units 04:22 04:23 04:32 WBC 9.8 (4.3-11.1) K/mcL RBC 4.87 (4.19-5.50) M/mcL Hgb 15.1 (12.9-16.9) g/dL Hct 44.6 (37.5-50.1) % MCV 91.6 (83.0-100.0) fL MCH 31.0 (28.0-33.3) pg MCHC 33.9 (31.6-35.5) g/dL RDW 14.6 H (11.5-14.5) % Plt Count 202 (140-400) K/mcL MPV 11.6 (9.4-12.4) fL Immature Gran % 0.3 (0-4) % Seg Neutrophils % 54.9 % Lymphocytes % 33.1 % Monocytes % 7.1 % Eosinophils % 3.8 % Basophils % 0.8 % Neutrophils # 5.4 (1.6-8.9) K/mcL Lymphocytes # 3.3 (0.6-4.6) K/mcL Monocytes # 0.7 (0.0-1.3) K/mcL Eosinophils # 0.4 (0.0-0.6) K/mcL Basophils # 0.1 (0.0-0.2) K/mcL PT 11.6 (9.4-12.1) Seconds INR 1.1 APTT 29.3 (26.0-36.0) Seconds Sodium (136-145) mEq/L Potassium (3.5-5.1) mEq/L Chloride (98-107) mEq/L Carbon Dioxide (23-29) mEq/L BUN (8-23) mg/dL Creatinine (0.70-1.30) mg/dL Est GFR ( Amer) (> 60) Est GFR (Non-Af Amer) (> 60) BUN/Creatinine Ratio (6-26) Glucose (70-105) mg/dL Calculated Osmolality (280-300) Calcium (8.6-10.3) mg/dL Troponin I (< 0.04) ng/mL B-Natriuretic Peptide 39 (Less than 100) pg/mL 10/29/17 Range/Units 04:32 WBC (4.3-11.1) K/mcL RBC (4.19-5.50) M/mcL Hgb (12.9-16.9) g/dL Hct (37.5-50.1) % MCV (83.0-100.0) fL MCH (28.0-33.3) pg MCHC (31.6-35.5) g/dL RDW (11.5-14.5) % Plt Count (140-400) K/mcL MPV (9.4-12.4) fL Immature Gran % (0-4) % Seg Neutrophils % % Lymphocytes % % Monocytes % % Eosinophils % % Basophils % % Neutrophils # (1.6-8.9) K/mcL Lymphocytes # (0.6-4.6) K/mcL Monocytes # (0.0-1.3) K/mcL Eosinophils # (0.0-0.6) K/mcL Basophils # (0.0-0.2) K/mcL PT (9.4-12.1) Seconds INR APTT (26.0-36.0) Seconds Sodium 141 (136-145) mEq/L Potassium 3.5 (3.5-5.1) mEq/L Chloride 107 (98-107) mEq/L Carbon Dioxide 23 (23-29) mEq/L BUN 17 (8-23) mg/dL Creatinine 1.15 (0.70-1.30) mg/dL Est GFR ( Amer) > 60 (> 60) Est GFR (Non-Af Amer) > 60 (> 60) BUN/Creatinine Ratio 15 (6-26) Glucose 155 H (70-105) mg/dL Calculated Osmolality 297 (280-300) Calcium 10.3 (8.6-10.3) mg/dL Troponin I < 0.03 (< 0.04) ng/mL B-Natriuretic Peptide (Less than 100) pg/mL - Radiology Data Radiology results reviewed: Yes I reviewed the patient's radiology results. Chest X-Ray 10/29/17 04:22 IMPRESSION: No acute cardiopulmonary findings. D/ / Edil Urbina / Edil Urbina Interpreting Provider: Edil Urbina - EKG Data EKG attestation: Yes I reviewed and interpreted this EKG. EKG results narrative: EKG reviewed by Dr. De Los Santos as well. EKG shows electronic atrial pacemaker an electronic ventricular pacemaker at a rate of 71 bpm. KS interval 177, QRS duration 159, QT/QTc interval 435/458. No ectopy noted. No ST elevation. Heart Score - Score History: Moderately Suspicious EKG: Normal Age: Greater than 65 Risk Factors: Equal/Greater than 3 risk factor or history of atherosclerotic disease Troponin: Less than normal limit HEART Score Total: 5
[2017-10-29] MEDS: Nitroglycerin 0.4 MG TAB.SUBL SL PRN ×2 (04:59→05:17)
[2017-10-29] MEDS ORDERED: Ondansetron 4 MG/2 ML VIAL IVP ONE (05:04)
[2017-10-29 05:21] LABS: Basophils # 0.1 K/mcL (0.0-0.2); Basophils % 0.8 %; Eosinophils # 0.4 K/mcL (0.0-0.6); Eosinophils % 3.8 %; Hematocrit 44.6 % (37.5-50.1); Hemoglobin 15.1 g/dL (12.9-16.9); Immature Granulocytes % 0.3 % (0-4); Lymphocytes # 3.3 K/mcL (0.6-4.6); Lymphocytes % 33.1 %; Mean Corpuscular HGB Conc 33.9 g/dL (31.6-35.5); Mean Corpuscular Volume 91.6 fL (83.0-100.0); Mean Platelet Volume 11.6 fL (9.4-12.4); Monocytes # 0.7 K/mcL (0.0-1.3); Monocytes % 7.1 %; Neutrophils # 5.4 K/mcL (1.6-8.9); Platelet Count 202 K/mcL (140-400); Red Blood Count 4.87 M/mcL (4.19-5.50); Red Cell Distribution Width 14.6 % (11.5-14.5); Segmented Neutrophils % 54.9 %
[2017-10-29 05:26] LABS: Troponin I < 0.03 ng/mL (< 0.04)
[2017-10-29 05:26] LABS: INR 1.1; Prothrombin Time 11.6 Seconds (9.4-12.1)
[2017-10-29 05:29] LABS: Activated Partial Thrombo Time 29.3 Seconds (26.0-36.0)
[2017-10-29 05:34] LABS: BUN/Creatinine Ratio 15 (6-26); Blood Urea Nitrogen 17 mg/dL (8-23); Calcium 10.3 mg/dL (8.6-10.3); Carbon Dioxide 23 mEq/L (23-29); Chloride 107 mEq/L (98-107); Glucose 155 mg/dL (70-105); Osmolality,Calculated 297 (280-300); Potassium 3.5 mEq/L (3.5-5.1); Sodium 141 mEq/L (136-145); eGFR For African Americans > 60 (> 60); eGFR For Non-African Americans > 60 (> 60)
--- NOTE | 2017-10-29 06:12 | Emergency Department Note ---
Disposition Clinical Impression: Chest pain, rule out acute myocardial infarction Disposition: Admitted As Inpatient Condition: Fair Referrals: Brayan Patel DO [Primary Care Provider] - Forms: ED Satisfaction Letter General Adult HPI - General Chief complaint: ED Chest Pain Stated complaint: chest pain Time Seen by Provider: 10/29/17 04:22 Source: patient Limitations: no limitations Nursing Notes Reviewed: Yes Vital Signs Reviewed: Yes - History of Present Illness Pain Scale: 1 - Related Data Home Medications Medication Instructions Recorded Confirmed Allopurinol [Zyloprim 300 MG] 300 mg PO DAILY 07/20/15 10/29/17 Levothyroxine [Synthroid] 100 mcg PO 0630 07/20/15 10/29/17 Prochlorperazine Maleate 10 mg PO Q8HR PRN 07/20/15 10/29/17 [Compazine] GlipiZIDE [Glipizide Xl] 5 mg PO DAILY 08/05/16 10/29/17 OxyCODONE/APAP 5/325 [Percocet 1 each PO Q6HR PRN 08/05/16 10/29/17 5/325 MG] Ropinirole HCl [Requip] 0.25 mg PO HS 08/05/16 10/29/17 Atorvastatin [Lipitor] 40 mg PO HS 09/27/16 10/29/17 FLUoxetine HCl [Prozac] 20 mg PO DAILY 09/27/16 10/29/17 Aspirin [Adult Aspirin Regimen] 81 mg PO DAILY 10/29/17 10/29/17 Losartan [Cozaar] 25 mg PO DAILY 10/29/17 10/29/17 Allergies Allergy/AdvReac Type Severity Reaction Status Date / Time Iodinated Contrast- Oral and AdvReac Rash Verified 09/27/16 07:24 IV Dye meperidine AdvReac Difficulty Verified 09/27/16 07:24 Breathing morphine AdvReac Confusion Verified 09/27/16 07:24 Penicillins [PCN] AdvReac thrush Verified 09/27/16 07:24 Tetracycline AdvReac Nausea Verified 09/27/16 07:24 Constitutional: Denies: fever, chills, weakness, weight change Eyes: Denies: eye pain, eye discharge, vision change ENT ED: Denies: ear pain, throat pain, dental pain, hearing loss, epistaxis, congestion, dysphagia Cardiovascular: Reports: as per HPI, chest pain. Denies: palpitations, dyspnea on exertion, edema, syncope Respiratory: Reports: as per HPI, cough, sputum production. Denies: dyspnea, wheezes, hemoptysis, stridor Gastrointestinal: Reports: as per HPI, nausea. Denies: abdominal pain, vomiting , diarrhea, constipation, hematemesis, melena, hematochezia Genitourinary: Denies: urgency, dysuria, frequency, hematuria Musculoskeletal: Denies: back pain, neck pain, arthralgia, myalgia Integumentary: Denies: rash, abrasion, lesions Neurological: Denies: headache, weakness, numbness, paresthesias, confusion, abnormal gait, vertigo Psychiatric: Denies: anxiety, depression, suicidal thoughts, homicidal thoughts , auditory hallucinations, visual hallucinations Endocrine: Denies: fatigue Hematological/Lymphatic: Denies: easy bleeding, easy bruising Allergic/Immunologic: Denies: facial swelling, urticaria Past Medical History - Past Medical History Medical history: Reports: arthritis, coronary artery disease, diabetes, fibromyalgia, GERD, hyperlipidemia, hypertension, renal disease, thyroid disease Surgical history: Reports: appendectomy, cholecystectomy, pacemaker Psychiatric history: Reports: no psych history - Social History Smoking Status: Never smoker Smokeless Tobacco Status: No Alcohol use: Reports: none Drug use: Reports: none Physical Exam - General Limitations: no limitations General appearance: alert, in no apparent distress Course Vital Signs Temperature 98.5 F 10/29/17 04:19 Pulse Rate 80 10/29/17 04:19 Respiratory Rate 18 10/29/17 04:19 Blood Pressure 179/93 10/29/17 04:19 O2 Sat by Pulse Oximetry 96 10/29/17 04:19 Temperature 98.5 F 10/29/17 04:19 Pulse Rate 77 10/29/17 05:30 Respiratory Rate 16 10/29/17 05:30 Blood Pressure 126/89 10/29/17 05:30 O2 Sat by Pulse Oximetry 96 10/29/17 05:30 Oxygen Delivery Oxygen Delivery Nasal Cannula Medical Decision Making - Lab Data Result diagrams: 10/29/17 04:32 10/29/17 04:32 Lab Results 10/29/17 10/29/17 10/29/17 Range/Units 04:22 04:23 04:32 WBC 9.8 (4.3-11.1) K/mcL RBC 4.87 (4.19-5.50) M/mcL Hgb 15.1 (12.9-16.9) g/dL Hct 44.6 (37.5-50.1) % MCV 91.6 (83.0-100.0) fL MCH 31.0 (28.0-33.3) pg MCHC 33.9 (31.6-35.5) g/dL RDW 14.6 H (11.5-14.5) % Plt Count 202 (140-400) K/mcL MPV 11.6 (9.4-12.4) fL Immature Gran % 0.3 (0-4) % Seg Neutrophils % 54.9 % Lymphocytes % 33.1 % Monocytes % 7.1 % Eosinophils % 3.8 % Basophils % 0.8 % Neutrophils # 5.4 (1.6-8.9) K/mcL Lymphocytes # 3.3 (0.6-4.6) K/mcL Monocytes # 0.7 (0.0-1.3) K/mcL Eosinophils # 0.4 (0.0-0.6) K/mcL Basophils # 0.1 (0.0-0.2) K/mcL PT 11.6 (9.4-12.1) Seconds INR 1.1 APTT 29.3 (26.0-36.0) Seconds Sodium (136-145) mEq/L Potassium (3.5-5.1) mEq/L Chloride (98-107) mEq/L Carbon Dioxide (23-29) mEq/L BUN (8-23) mg/dL Creatinine (0.70-1.30) mg/dL Est GFR ( Amer) (> 60) Est GFR (Non-Af Amer) (> 60) BUN/Creatinine Ratio (6-26) Glucose (70-105) mg/dL Calculated Osmolality (280-300) Calcium (8.6-10.3) mg/dL Troponin I (< 0.04) ng/mL B-Natriuretic Peptide 39 (Less than 100) pg/mL 10/29/17 Range/Units 04:32 WBC (4.3-11.1) K/mcL RBC (4.19-5.50) M/mcL Hgb (12.9-16.9) g/dL Hct (37.5-50.1) % MCV (83.0-100.0) fL MCH (28.0-33.3) pg MCHC (31.6-35.5) g/dL RDW (11.5-14.5) % Plt Count (140-400) K/mcL MPV (9.4-12.4) fL Immature Gran % (0-4) % Seg Neutrophils % % Lymphocytes % % Monocytes % % Eosinophils % % Basophils % % Neutrophils # (1.6-8.9) K/mcL Lymphocytes # (0.6-4.6) K/mcL Monocytes # (0.0-1.3) K/mcL Eosinophils # (0.0-0.6) K/mcL Basophils # (0.0-0.2) K/mcL PT (9.4-12.1) Seconds INR APTT (26.0-36.0) Seconds Sodium 141 (136-145) mEq/L Potassium 3.5 (3.5-5.1) mEq/L Chloride 107 (98-107) mEq/L Carbon Dioxide 23 (23-29) mEq/L BUN 17 (8-23) mg/dL Creatinine 1.15 (0.70-1.30) mg/dL Est GFR ( Amer) > 60 (> 60) Est GFR (Non-Af Amer) > 60 (> 60) BUN/Creatinine Ratio 15 (6-26) Glucose 155 H (70-105) mg/dL Calculated Osmolality 297 (280-300) Calcium 10.3 (8.6-10.3) mg/dL Troponin I < 0.03 (< 0.04) ng/mL B-Natriuretic Peptide (Less than 100) pg/mL Attestation Statement - Attestation Attestation: I, Nikolai De Los Santos MD, personally evaluated this patient and discussed their management with the midlevel provicer, PAC/URGENT CARE PHYSICIAN. I reviewed the midlevel provider 's note and agree with the documented findings, medical decision making, and plan of care. 72-year-old male presents to the emergency department with a complaint of mid substernal chest pain for 1 week prior to arrival. Pain is pretty much been present all the time but waxes and wanes in intensity. It does not seem to be worse with exertion. No shortness of breath. Some mild nausea. No vomiting. No diaphoresis. No prior coronary artery disease. Patient has a history of bradycardia and a pacemaker. He was seen at another facility several days ago and was admitted for observation and repeat troponins which were negative. He was discharged home on medications for reflux and gastritis but states these have not affected the pain and it seems to be getting gradually worse. He has been unable to sleep due to the pain. On examination patient is a well-developed well-nourished well-appearing elderly male in no acute distress. He is alert and oriented 3. There is no cyanosis or diaphoresis. Chest is nontender to palpation. Breath sounds are clear and equal bilaterally. Heart regular rate and rhythm. Abdomen is soft and nontender with normal bowel sounds. Trace pedal edema. EKG shows electronic ventricular pacemaker with a totally paced rhythm. Chest x -ray negative. Labs reviewed and unremarkable. Troponin normal. The hospitalist, Dr. Harding, was consulted and accepted admission of the patient.
[2017-10-29] MEDS ORDERED: Acetaminophen 325 MG TABLET PO PRN (06:31)
[2017-10-29] MEDS ORDERED: *HR* Enoxaparin 120 MG/0.8 ML SYRINGE SQ STA (06:31)
[2017-10-29] MEDS ORDERED: Naloxone 0.4 MG/ML INJ IVP PRN (06:31)
[2017-10-29] MEDS ORDERED: D5% in Water 1,000 ML IVC PRN (06:36)
[2017-10-29] MEDS ORDERED: *HR* Dextrose 50 % in Water (Syg) 50 ML SYRINGE IVP PRN (06:36)
[2017-10-29] MEDS ORDERED: Dextrose Gel 15 GM/37.5 ML TUBE PO PRN ×2 (06:36)
--- NOTE | 2017-10-29 06:46 | Internal Med History&Physical ---
Date of Encounter: 10/29/17 Time of Encounter: 06:05 Internal Medicine - H&P: HPI Chief complaint: chest pain Admitted From: Emergency Dept Plans for Post Hospital Care: Home History of present illness: Mr. Kaufman is a 72 year old male who presents with a one-week history of chest pain and shortness of breath. He was hospitalized for one day at [facility] over the weekend and released later that night. Workup was negative including 2 sets of troponins and EKGs. He did not undergo stress test or further diagnostic imaging. Because symptoms persisted, he came to ER here at [place] for further workup and evaluation. Initial workup was negative and he was admitted to hospitalist service. I saw patient in the ER, and he states he has had substernal chest pain and heaviness associated with shortness of breath and shoulder pain. Pain has been persistent for a week and is unrelieved by rest. Furthermore, it is not exacerbated by exertion either. He had a prior stress test roughly 5 years ago , which was negative. He has never had a heart catheterization. 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 He and his state he had a DVT last year after his knee replacement surgery. He was on anti-coagulation for roughly 2 months, and repeat imaging revealed resolution of his DVT. His anticoagulation was therefore stopped after 2 months. He denies any prior history of PE. Given his history of DVT and presenting symptoms, I have a high index of suspicion for PE. I will therefore order a VQ scan and Dopplers of his legs. Additionally, I will give a one-time STAT dose of Lovenox until workup can be completed. I discussed this with patient and his , and they are in agreement with the plan. Past Med Surg Social Fam HX - Past Medical History Attestation: Yes The following information was validated with the patient. Source: patient, old records reviewed, obtained from family Medical history: arthritis, coronary artery disease, DVT (last year), diabetes, fibromyalgia, GERD, hyperlipidemia, hypertension, renal disease, thyroid disease Psychiatric history: no psych history - Past Surgical History Surgical History: appendectomy, cholecystectomy, knee replacement, pacemaker - Social History Smoking Status: Never smoker Smokeless Tobacco Status: No Alcohol use: none Drug use: none Current living situation: Home, With Family Activity Level: Independent ambulation Recent Out of Country Travel Within the Last 8 Weeks: No - Family History Father Living Status: Hx Family Cardiac Disorders: Yes Mother Living Status: Hx Family Cancer: Yes (BREAST) Internal Medicine - H&P: Meds Allopurinol [Zyloprim 300 MG] 300 mg PO DAILY 07/20/15 [History] Levothyroxine [Synthroid] 100 mcg PO 0630 07/20/15 [History] Prochlorperazine Maleate [Compazine] 10 mg PO Q8HR PRN 07/20/15 [History] GlipiZIDE [Glipizide Xl] 5 mg PO DAILY 08/05/16 [History] OxyCODONE/APAP 5/325 [Percocet 5/325 MG] 1 each PO Q6HR PRN 08/05/16 [History] Ropinirole HCl [Requip] 0.25 mg PO HS 08/05/16 [History] Atorvastatin [Lipitor] 40 mg PO HS 09/27/16 [History] FLUoxetine HCl [Prozac] 20 mg PO DAILY 09/27/16 [History] Aspirin [Adult Aspirin Regimen] 81 mg PO DAILY 10/29/17 [History] Losartan [Cozaar] 25 mg PO DAILY 10/29/17 [History] 3 Allergy/AdvReac Type Severity Reaction Status Date / Time Iodinated Contrast- Oral and AdvReac Rash Verified 09/27/16 07:24 IV Dye meperidine AdvReac Difficulty Verified 09/27/16 07:24 Breathing morphine AdvReac Confusion Verified 09/27/16 07:24 Penicillins [PCN] AdvReac thrush Verified 09/27/16 07:24 Tetracycline AdvReac Nausea Verified 09/27/16 07:24 - Constitutional Constitutional: no chills, no fever(s), no falls - EENT Eyes: no blurry vision, no change in vision Ears: no ear pain, no tinnitus Nose, mouth and throat: no nasal congestion, no sinus pressure, no sore throat - Cardiovascular Cardiovascular ROS IM: chest pain, dyspnea, dyspnea on exertion, no edema, no lightheadedness, no paroxysmal nocturnal dyspnea, no syncope - Respiratory Respiratory: dyspnea, dyspnea on exertion, no cough, no hemoptysis, no wheezing , no chest congestion, no excessive phlegm production, no change in phlegm color , no pain with cough - Gastrointestinal Gastrointestinal: no abdominal pain, no cramping, no diarrhea, no hematemesis, no hematochezia, no melena, no nausea, no vomiting - Genitourinary Genitourinary ROS male: no dysuria, no flank pain, no hematuria - Musculoskeletal Musculoskeletal ROS IM: no back pain, no limited range of motion, no muscle cramps, no muscle weakness, no myalgias - Integumentary Integumentary IM: no rash, no jaundice - Neurological Neurological ROS: no dizziness, no focal weakness, no frequent falls, no headache(s), no weakness - Psychiatric Psychiatric: no anxiety, no depression - Endocrine Endocrine IM: no polydipsia, no polyuria - Hematologic/Lymphatic Hematologic/Lymphatic: no easy bruising, no lymphadenopathy - Allergic/Immunologic Allergic/Immunologic: no wheezing, no GI upset with certain foods - Constitutional Vitals: Temp Pulse Resp BP Pulse Ox 98.5 F 63 16 135/78 96 10/29/17 04:19 10/29/17 06:30 10/29/17 06:30 10/29/17 06:30 10/29/17 06:30 General appearance: Present: cooperative, A&O X 3, pleasant, no acute distress, answers questions appropriately - Head Head exam: Present: atraumatic, normal inspection - Eye Eye exam: Present: EOMI, normal appearance, PERRL. Absent: scleral icterus Pupils: Present: normal accommodation - ENT ENT exam: Present: mucous membranes dry, normal exam, normal oropharynx - Neck Neck exam general surgery: Present: full ROM, normal inspection, supple. Absent : tenderness, nuchal rigidity, thyromegaly - Expanded Neck Exam Neck exam: Absent: carotid bruit - Respiratory Respiratory exam: Present: CTAB. Absent: rales, rhonchi, wheezes - Cardiovascular Cardiovascular exam: Present: distant heart sounds, RRR, +S1, +S2. Absent: diastolic murmur, irregular rhythm, JVD, systolic murmur Additional comments: palpable pacer in left upper chest - GI/Abdominal GI/Abdominal exam: Present: normal bowel sounds, soft, no peritoneal signs. Absent: guarding, hepatomegaly, mass, rebound, splenomegaly, tenderness - Extremities Exam Extremities exam: Present: full ROM, normal capillary refill, warm, radial pulses palpable and symmetrical. Absent: calf tenderness, joint swelling, pedal edema, tenderness - Back Exam Back exam: Present: normal inspection. Absent: CVA tenderness (L), CVA tenderness (R) - Neurological Exam Neurological exam: Present: alert, CN II-XII intact, oriented X3, no focal deficits - Psychiatric Psychiatric exam: Present: normal affect, normal mood - Skin Skin exam: Present: dry, warm. Absent: rash Internal Med - H&P Results - Labs CBC & Chem 7: 10/29/17 04:32 10/29/17 04:32 Labs: Short CBC 10/29/17 Range/Units 04:32 WBC 9.8 (4.3-11.1) K/mcL Hgb 15.1 (12.9-16.9) g/dL Hct 44.6 (37.5-50.1) % Plt Count 202 (140-400) K/mcL Neutrophils # 5.4 (1.6-8.9) K/mcL BMP 10/29/17 04:32 Sodium 141 Potassium 3.5 Chloride 107 Carbon Dioxide 23 BUN 17 Creatinine 1.15 Glucose 155 H Calcium 10.3 Cardiac Enzymes 10/29/17 Range/Units 04:32 Troponin I < 0.03 (< 0.04) ng/mL - EKG Data -: EKG Interpreted by Myself - EKG Data EKG comments: 10/29/17 06:53 Atrial paced rhythm - Impressions ITS Impressions Chest X-Ray 10/29/17 04:22 IMPRESSION: No acute cardiopulmonary findings. D/ / Edil Urbina / Edil Urbina Interpreting Provider: Edil Urbina - Diagnostic Studies Chest x-ray Status: image reviewed by me (negative) - Assessment and plan (1) Chest pain Current Visit: Yes Status: Acute Assessment and plan: 1. History concerning for possible PE. 2. Patient has IV dye allergy and CKD. Will forgo CTA chest and proceed with V /Q and BLE Dopplers. 3. Will give a one time dose of Lovenox until work-up completed. 4. If EKG's and troponins remain negative, patient can proceed with outpatient stress testing. Qualifiers: Chest pain type: precordial pain Qualified Code(s): R07.2 - Precordial pain (2) DMII (diabetes mellitus, type 2) Current Visit: Yes Status: Chronic Assessment and plan: 1. Hold oral meds. 2. Will order SSI and adjust dosing as necessary. 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 Lovenox one time dose ordered. Further dosing pending above work-up.
[2017-10-29] MEDS: Insulin LISPRO 300 UNITS/3 ML VIAL SQ SCH ×3 (10:12→17:35)
[2017-10-29] MEDS: 0.9 % Sodium Chloride 1,000 ML IVC SCH (10:41)
[2017-10-29] MEDS: Aspirin Enteric Coated 81 MG Tablet PO SCH (10:41)
[2017-10-29] MEDS: FLUoxetine 20 MG CAPSULE PO SCH (10:41)
[2017-10-29 11:53] LABS: Estimated Average Glucose 131 mg/dl; Hemoglobin A1C 6.2 %
[2017-10-29] MEDS ORDERED: Ondansetron ODT 4 MG TAB.RAPDIS SL PRN (15:50)
--- NOTE | 2017-10-29 15:59 | Event Note ---
Date of Encounter: 10/29/17 Time of Encounter: 15:47 (1) Chest pain presented with CP, no SOB. Troponin X2 negative, EKG without acute ST changes. V/Q scan with low probability for pulmonary embolism. NPO at [place] for possible stress test (may need to wait 48-72 hours after V/Q scan) (2) DMII (diabetes mellitus, type 2) per hx. Holding home oral hypoglyemics. SSI. Monitor blood sugar and titrate PRN (3) DVT prophylaxis heparin
[2017-10-29] MEDS: rOPINIRole 0.25 MG TABLET PO SCH (21:00)
[2017-10-29] MEDS ORDERED: *HR* Promethazine 25 MG/ML VIAL IVP PRN (21:08)
[2017-10-29] MEDS: *HR* OxyCODONE/APAP 5/325 TABLET PO PRN (22:51)
[2017-10-30] MEDS: 0.9 % Sodium Chloride 1,000 ML IVC SCH (00:07)
[2017-10-30] MEDS ORDERED: Regadenoson 0.4 MG/5 ML SYRINGE IVP ONE (05:46)
[2017-10-30 07:20] LABS: Basophils # 0.1 K/mcL (0.0-0.2); Basophils % 0.9 %; Eosinophils # 0.3 K/mcL (0.0-0.6); Eosinophils % 3.7 %; Hematocrit 41.5 % (37.5-50.1); Immature Granulocytes % 0.3 % (0-4); Lymphocytes # 2.8 K/mcL (0.6-4.6); Lymphocytes % 37.2 %; Mean Corpuscular HGB Conc 32.3 g/dL (31.6-35.5); Mean Corpuscular Hemoglobin 30.5 pg (28.0-33.3); Mean Corpuscular Volume 94.3 fL (83.0-100.0); Mean Platelet Volume 11.7 fL (9.4-12.4); Monocytes # 0.7 K/mcL (0.0-1.3); Monocytes % 8.7 %; Neutrophils # 3.7 K/mcL (1.6-8.9); Platelet Count 170 K/mcL (140-400); Red Cell Distribution Width 14.6 % (11.5-14.5); Segmented Neutrophils % 49.2 %
[2017-10-30 07:22] LABS: Hemoglobin 13.4 g/dL (12.9-16.9)
[2017-10-30 07:38] LABS: Alanine Aminotransferase 35 Units/L (7-52); Albumin 3.9 g/dL (3.5-5.7); Albumin/Globulin Ratio 1.7 (1.1-2.2); Alkaline Phosphatase 52 Units/L (34-104); Aspartate Amino Transferase 25 Units/L (13-39); BUN/Creatinine Ratio 14 (6-26); Bilirubin,Total 0.7 mg/dL (0.3-1.0); Blood Urea Nitrogen 16 mg/dL (8-23); Calcium 9.5 mg/dL (8.6-10.3); Carbon Dioxide 27 mEq/L (23-29); Chloride 111 mEq/L (98-107); Chol/HDL Ratio 5.5 (0-4.9); Cholesterol 133 mg/dL (< 200); Globulin 2.3 g/dL (2.4-3.5); Glucose 116 mg/dL (70-105); HDL Cholesterol 24 mg/dL (40-59); LDL Cholesterol,Calculated 53 mg/dL (0-99); Magnesium 1.9 mg/dL (1.6-2.6); Osmolality,Calculated 298 (280-300); Potassium 3.7 mEq/L (3.5-5.1); Sodium 143 mEq/L (136-145); Total Protein 6.2 g/dL (6.4-8.9); Triglycerides 278 mg/dL (< 150); eGFR For African Americans > 60 (> 60); eGFR For Non-African Americans > 60 (> 60)
[2017-10-30] MEDS: Insulin LISPRO 300 UNITS/3 ML VIAL SQ SCH ×3 (09:12→17:09)
[2017-10-30] MEDS: FLUoxetine 20 MG CAPSULE PO SCH (09:30)
[2017-10-30] MEDS: Aspirin Enteric Coated 81 MG Tablet PO SCH (09:30)
--- NOTE | 2017-10-30 17:34 | Internal Med Progress Note ---
Date of Encounter: 10/30/17 Time of Encounter: 17:48 - Assessment and plan (1) Chest pain Current Visit: Yes Status: Acute Assessment and plan: presented with CP, no SOB. Troponin X2 negative, EKG without acute ST changes. V/Q scan with low probability for pulmonary embolism. With abdominal pain/ nausea as noted below, concern for possible GI source as well. NPO at MD for stress test. Qualifiers: Chest pain type: precordial pain Qualified Code(s): R07.2 - Precordial pain (2) Abdominal pain Current Visit: Yes Status: Acute Assessment and plan: Patient reports epigastric pain with associated nausea and early satiety has worsened over the last week. ABD CT non-acute. He could have a GI source that is causing chest pain. Cont PPI. GI consult Qualifiers: Abdominal location: upper abdomen, unspecified Qualified Code(s): R10.10 - Upper abdominal pain, unspecified (3) DMII (diabetes mellitus, type 2) Current Visit: Yes Status: Chronic Assessment and plan: 1. Hold oral meds. 2. Will order SSI and adjust dosing as necessary. Qualifiers: Diabetes mellitus long-term insulin use: without long-term use Diabetes mellitus complication status: with kidney complications Diabetes mellitus complication detail: with chronic kidney disease Chronic kidney disease stage : stage 2 (mild) Qualified Code(s): E11.22 - Type 2 diabetes mellitus with diabetic chronic kidney disease; N18.2 - Chronic kidney disease, stage 2 (mild) ; N18.2 - Chronic kidney disease, stage 2 (mild) (4) CKD (chronic kidney disease) stage 1, GFR 90 ml/min or greater Current Visit: Yes Status: Acute Assessment and plan: per hx. renal function appears better than baseline. Avoid nephrotoxic agents as possible. Monitor repeat BMP (5) Hypothyroid Current Visit: Yes Status: Acute Assessment and plan: Per history. Continue home levothyroxine Qualifiers: Hypothyroidism type: acquired Qualified Code(s): E03.9 - Hypothyroidism, unspecified (6) HTN (hypertension) Current Visit: No Status: Chronic Assessment and plan: per hx. BP variable but acceptable. Continue home BP medication. Monitor BP and titrate PRN Qualifiers: Hypertension type: essential hypertension Qualified Code(s): I10 - Essential (primary) hypertension (7) DVT prophylaxis Current Visit: Yes Status: Acute Assessment and plan: heparin - Time Spent With Patient Total time spent is greater than 50% in coordination of care (as documented) at patient's floor/unit and/or counseling patient: - Subjective Interval history: Seen and examined at bedside. Patient is new to me, information obtained from chart review and patient report. Still with mild chest pain and epigastric pain. He reports epigastric pain, nausea and sensation of feeling full with only a couple bites of 18 that has worsened over the last week. No SOB - Constitutional Vitals: Temp Pulse Resp BP Pulse Ox 99.2 F 66 14 145/75 96 10/30/17 15:50 10/30/17 15:50 10/30/17 15:50 10/30/17 15:50 10/30/17 15:50 General appearance: Present: cooperative, A&O X 3, pleasant, no acute distress, answers questions appropriately - Head Head exam: Present: atraumatic, normocephalic - Eye Eye exam: Present: PERRL, conjuntiva pink, sclera anicteric Pupils: Present: PERRL - Neck Neck exam general surgery: Present: supple, trachea midline. Absent: lymphadenopathy - Respiratory Respiratory exam: Present: CTAB. Absent: accessory muscle use, rales, rhonchi, wheezes - Cardiovascular Cardiovascular exam: Present: RRR, +S1, +S2. Absent: diastolic murmur, gallop, rubs, systolic murmur - GI/Abdominal GI/Abdominal exam: Present: normal bowel sounds, soft, no peritoneal signs. Absent: distended, tenderness - Extremities Exam Extremities exam: Present: warm, radial pulses palpable and symmetrical. Absent : calf tenderness, cyanotic, pedal edema - Neurological Exam Neurological exam: Present: CN II-XII intact, oriented X3, no focal deficits. Absent: pronater drift, facial droop, speech deficit - Skin Skin exam: Present: dry, intact Internal Medicine: Result - Labs CBC & Chem 7: 10/30/17 06:04 10/30/17 06:04 Labs: Short CBC 10/30/17 Range/Units 06:04 WBC 7.6 (4.3-11.1) K/mcL Hgb 13.4 D (12.9-16.9) g/dL Hct 41.5 (37.5-50.1) % Plt Count 170 (140-400) K/mcL Neutrophils # 3.7 (1.6-8.9) K/mcL BMP 10/30/17 06:04 Sodium 143 Potassium 3.7 Chloride 111 H Carbon Dioxide 27 BUN 16 Creatinine 1.18 Glucose 116 H Calcium 9.5 Liver Function 10/30/17 Range/Units 06:04 Total Bilirubin 0.7 (0.3-1.0) mg/dL AST 25 (13-39) Units/L ALT 35 (7-52) Units/L Alkaline Phosphatase 52 (34-104) Units/L Albumin 3.9 (3.5-5.7) g/dL - ABG Interpretation ABG results: PT/INR, D-dimer PT 11.6 Seconds (9.4-12.1) 10/29/17 04:22 - Impressions Impressions Abdomen/Pelvis CT 10/29/17 15:55 IMPRESSION: 1. No acute infective or inflammatory process. 2. Stable right renal cysts. 3. No bowel obstruction. 4. No urinary tract calculi. D/ / Ulises Paredes MD / Ulises Paredes MD Interpreting Provider: Ulises Paredes MD Consult Discharge Plan - Plan Referrals: Thad Tomlin DO [Partnered Physician] - 11/11/17 1:40 pm Brayan Patel DO [Primary Care Provider] - 11/06/17 9:30 am Cyndee Rodriguez [Partnered Physician] - 11/05/17 2:50 pm
[2017-10-30] MEDS: Pantoprazole 40 MG VIAL IVP SCH (18:54)
[2017-10-30] MEDS: *HR* Heparin 5,000 UNIT/ML VIAL SQ SCH (20:37)
[2017-10-30] MEDS: *HR* OxyCODONE/APAP 5/325 TABLET PO PRN (20:38)
[2017-10-31] MEDS: rOPINIRole 0.25 MG TABLET PO SCH (00:22)
[2017-10-31] MEDS ORDERED: Regadenoson 0.4 MG/5 ML SYRINGE IVP ONE ×2 (05:25→11:40)
[2017-10-31] MEDS: *HR* Heparin 5,000 UNIT/ML VIAL SQ SCH ×2 (06:13→14:12)
--- NOTE | 2017-10-31 07:19 | Electrocardiograph Report ---
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
[2017-10-31] MEDS: FLUoxetine 20 MG CAPSULE PO SCH (08:28)
[2017-10-31] MEDS: Pantoprazole 40 MG VIAL IVP SCH (08:28)
[2017-10-31] MEDS: Aspirin Enteric Coated 81 MG Tablet PO SCH (08:28)
[2017-10-31] MEDS: Insulin LISPRO 300 UNITS/3 ML VIAL SQ SCH ×4 (08:29→16:05)
--- NOTE | 2017-10-31 10:36 | Internal Med Progress Note ---
Date of Encounter: 10/31/17 Time of Encounter: 10:34 - Assessment and plan (1) Chest pain Current Visit: Yes Status: Acute Assessment and plan: presented with CP, no SOB. Troponins negative, EKG without acute ST changes. V /Q scan with low probability for pulmonary embolism. With abdominal pain/ nausea as noted below, concern for possible GI source as well. NPO for stress. GI consulted for to rule out possible GI cause Qualifiers: Chest pain type: precordial pain Qualified Code(s): R07.2 - Precordial pain (2) Abdominal pain Current Visit: Yes Status: Acute Assessment and plan: Patient reports epigastric pain with associated nausea and early satiety has worsened over the last week. ABD CT non-acute. He could have a GI source that is causing chest pain.States stomach much better after prilosec Cont PPI. GI consult Qualifiers: Abdominal location: upper abdomen, unspecified Qualified Code(s): R10.10 - Upper abdominal pain, unspecified (3) HTN (hypertension) Current Visit: No Status: Chronic Assessment and plan: per hx. BP variable but acceptable. Continue home BP medication. Monitor BP and titrate PRN Qualifiers: Hypertension type: essential hypertension Qualified Code(s): I10 - Essential (primary) hypertension (4) DMII (diabetes mellitus, type 2) Current Visit: Yes Status: Chronic Assessment and plan: 1. Hold oral meds. 2. Accuceck ACX HS Will order SSI and adjust dosing as necessary. Qualifiers: Diabetes mellitus assisted insulin use: without assisted use Diabetes mellitus complication status: with kidney complications Diabetes mellitus complication detail: with chronic kidney disease Chronic kidney disease stage : stage 2 (mild) Qualified Code(s): E11.22 - Type 2 diabetes mellitus with diabetic chronic kidney disease; N18.2 - Chronic kidney disease, stage 2 (mild) ; N18.2 - Chronic kidney disease, stage 2 (mild) (5) CKD (chronic kidney disease) stage 1, GFR 90 ml/min or greater Current Visit: Yes Status: Acute Assessment and plan: per hx. renal function appears better than baseline. Avoid nephrotoxic agents as possible. Monitor repeat creatinine (6) Hypothyroid Current Visit: Yes Status: Acute Assessment and plan: Per history. Continue home levothyroxine Qualifiers: Hypothyroidism type: acquired Qualified Code(s): E03.9 - Hypothyroidism, unspecified (7) DVT prophylaxis Current Visit: Yes Status: Acute Assessment and plan: heparin - Time Spent With Patient Total time spent is greater than 50% in coordination of care (as documented) at patient's floor/unit and/or counseling patient: - Subjective Interval history: Patient is new to me I did review the records, I examined the patient at bedside. He preparing to go to Stress test. Denies any SOB, CP - Constitutional Vitals: Temp Pulse Resp BP Pulse Ox 98.1 F 86 18 153/90 93 10/31/17 08:20 10/31/17 08:20 10/31/17 08:20 10/31/17 08:20 10/31/17 08:20 General appearance: Present: cooperative, A&O X 3, pleasant, no acute distress, answers questions appropriately - Head Head exam: Present: atraumatic, normocephalic - Eye Eye exam: Present: PERRL, conjuntiva pink, sclera anicteric Pupils: Present: PERRL - Neck Neck exam general surgery: Present: supple, trachea midline. Absent: lymphadenopathy - Respiratory Respiratory exam: Present: CTAB. Absent: accessory muscle use, rales, rhonchi, wheezes - Cardiovascular Cardiovascular exam: Present: RRR, +S1, +S2. Absent: diastolic murmur, gallop, rubs, systolic murmur - GI/Abdominal GI/Abdominal exam: Present: normal bowel sounds, soft, no peritoneal signs. Absent: distended, tenderness - Extremities Exam Extremities exam: Present: warm, radial pulses palpable and symmetrical. Absent : calf tenderness, cyanotic, pedal edema - Neurological Exam Neurological exam: Present: CN II-XII intact, oriented X3, no focal deficits. Absent: pronater drift, facial droop, speech deficit - Skin Skin exam: Present: dry, intact Internal Medicine: Result - Labs CBC & Chem 7: 10/30/17 06:04 10/30/17 06:04 - ABG Interpretation ABG results: PT/INR, D-dimer PT 11.6 Seconds (9.4-12.1) 10/29/17 04:22 Consult Discharge Plan - Plan Referrals: Thad Tomlin DO [Partnered Physician] - 11/11/17 1:40 pm Brayan Patel DO [Primary Care Provider] - 11/06/17 9:30 am Cyndee Rodriguez [Partnered Physician] - 11/05/17 2:50 pm
--- NOTE | 2017-10-31 12:20 | Gastroenterology Consult Note ---
<Roni Mora Marianna - Last Filed: 10/31/17 12:16> Date of Encounter: 10/31/17 Time of Encounter: 10:40 - Assessment and plan (1) Epigastric abdominal pain Status: Acute Assessment and plan: Symptoms improved after starting Protonix. CT A/P with no acute process noted. Sigmoid colon resection and anastomosis noted. Planned for EGD today to r/o esophagitis, gastritis, duodenitis, PUD, MW tear, or AVM, but patient ate this morning and we will be unable to complete in procedure. Pt is also scheduled for stress test today. Will plan to complete EGD as outpatient. Continue PPI. - Time Spent With Patient Total time spent is greater than 50% in coordination of care (as documented) at patient's floor/unit and/or counseling patient: GI History of Present Illness - Data of Consult Patient: new to practice Consult date: 10/31/17 Requesting Physician: Jenny White CNP - Consult Narrative Reason for consult: Abdominal pain, nausea, early satiety History of present illness: Mr. Kaufman is a 72 year old male with PMHx of arthritis, CAD, DVT, DM, fibromyalgia, GERD, HLD, HTN who presented with one-week history of chest pain and shortness of breath. He was hospitalized for one day at [facility] over the weekend and released later that night. Workup was negative including 2 sets of troponins and EKGs. He did not undergo stress test or further diagnostic imaging. Because symptoms persisted, he came to ER here at [facility] for further workup and evaluation. He reports epigastric pain with associated nausea and early satiety has worsened over the last week. Today he reports feeling better. He reports he ate some food this morning, and tolerated the PO intake without problem. Procedures: Colonoscopy 02/22/2010 Dr. Hernandez: Probable inverted appendix biopsies with nonspecific inflammation. NSAIDs: ASA Anticoagulation: None Past Med Surg Social Fam HX - Past Medical History Medical history: arthritis, coronary artery disease, DVT, diabetes, GERD, hyperlipidemia, hypertension, renal disease, thyroid disease Psychiatric history: no psych history - Past Surgical History Surgical History: appendectomy, cholecystectomy, knee replacement, pacemaker - Social History Smoking Status: Never smoker Smokeless Tobacco Status: No Alcohol use: none Drug use: none - Family History Father Living Status: Hx Family Cardiac Disorders: Yes Mother Living Status: Hx Family Cancer: Yes (BREAST) - Gastrointestinal Gastrointestinal: Present: as per HPI - Constitutional Constitutional: as per HPI - EENT Eyes: as per HPI Ears: Present: as per HPI Nose, mouth and throat: Present: as per HPI - Cardiovascular Cardiovascular ROS: Present: as per HPI - Respiratory Respiratory IM: Present: as per HPI - Genitourinary Genitourinary: Absent: change in color, Urinary frequency - Neurological ROS Neurological GI: Present: as per HPI - Hematologic/Lymphatic Hematologic/Lymphatic pediatric: Present: as per HPI - Musculoskeletal Musculoskeletal ROS GI: Present: as per HPI - Integumentary Integumentary GI: Present: as per HPI - Psychiatric ROS Psychiatric GI: Present: as per HPI - Endocrine Endocrine IM: Present: as per HPI - Constitutional Vitals: Temp Pulse Resp BP Pulse Ox 98.1 F 86 18 153/90 93 10/31/17 08:20 10/31/17 08:20 10/31/17 08:20 10/31/17 08:20 10/31/17 08:20 General appearance: Present: cooperative, A&O X 3, no acute distress, answers questions appropriately - Head Head exam: Present: atraumatic, normocephalic - Eye Eye exam: Present: normal appearance, sclera anicteric - ENT ENT exam: Present: mucous membranes dry - Neck Neck exam general surgery: Present: normal inspection, trachea midline - Respiratory Respiratory exam: Present: CTAB. Absent: rales, rhonchi, wheezes - Cardiovascular Cardiovascular exam: Present: RRR, +S1, +S2 - GI/Abdominal GI/Abdominal exam: Present: soft, no peritoneal signs. Absent: distended, firm , guarding, tenderness - Rectal Rectal exam: Present: deferred - Extremities Exam Extremities exam: Present: warm - Neurological Exam Neurological exam: Present: no focal deficits - Psychiatric Psychiatric exam: Present: normal affect, normal mood - Skin Skin exam: Present: dry, intact, normal color, warm Results - Labs CBC & Chem 7: 10/30/17 06:04 10/30/17 06:04 Labs: Last Result Calcium 9.5 mg/dL (8.6-10.3) 10/30/17 06:04 Troponin I < 0.03 ng/mL (< 0.04) 10/29/17 16:06 Triglycerides 278 mg/dL (< 150) H 10/30/17 06:04 Entire Visit Hgb 13.4 g/dL (12.9-16.9) D 10/30/17 06:04 Hct 41.5 % (37.5-50.1) 10/30/17 06:04 PT 11.6 Seconds (9.4-12.1) 10/29/17 04:22 Total Bilirubin 0.7 mg/dL (0.3-1.0) 10/30/17 06:04 AST 25 Units/L (13-39) 10/30/17 06:04 ALT 35 Units/L (7-52) 10/30/17 06:04 - ABG ABG results: PT/INR, D-dimer PT 11.6 Seconds (9.4-12.1) 10/29/17 04:22 Consult Discharge Plan - Plan Instructions: Chest Pain (DC), Hypothyroidism (DC), Diabetes Mellitus Type 2 in Adults (DC), Chronic Hypertension (DC), Anemia (GEN) Referrals: Thad Tomlin DO [Partnered Physician] - 11/11/17 1:40 pm Brayan Patel DO [Primary Care Provider] - 11/06/17 9:30 am Cyndee Rodriguez [Partnered Physician] - 11/05/17 2:50 pm <Dayne Linn - Last Filed: 10/31/17 23:49> Date of Encounter: 10/31/17 Time of Encounter: 14:10 - Time Spent With Patient Total time spent is greater than 50% in coordination of care (as documented) at patient's floor/unit and/or counseling patient: GI History of Present Illness - Data of Consult Requesting Physician: Jenny White CNP - Consult Narrative History of present illness: Mr. Kaufman is a 72 year old male - Constitutional Vitals: Temp Pulse Resp BP Pulse Ox 97.8 F 73 17 159/88 94 10/31/17 15:18 10/31/17 15:18 10/31/17 15:18 10/31/17 15:18 10/31/17 15:18 Results - Labs CBC & Chem 7: 10/30/17 06:04 10/30/17 06:04 Labs: Last Result Calcium 9.5 mg/dL (8.6-10.3) 10/30/17 06:04 Troponin I < 0.03 ng/mL (< 0.04) 10/29/17 16:06 Triglycerides 278 mg/dL (< 150) H 10/30/17 06:04 Entire Visit Hgb 13.4 g/dL (12.9-16.9) D 10/30/17 06:04 Hct 41.5 % (37.5-50.1) 10/30/17 06:04 PT 11.6 Seconds (9.4-12.1) 10/29/17 04:22 Total Bilirubin 0.7 mg/dL (0.3-1.0) 10/30/17 06:04 AST 25 Units/L (13-39) 10/30/17 06:04 ALT 35 Units/L (7-52) 10/30/17 06:04 - ABG ABG results: PT/INR, D-dimer PT 11.6 Seconds (9.4-12.1) 10/29/17 04:22 - Attending Attestation I have personally performed a face to face evaluation on this patient. I have reviewed and agree with the care plan. History and Exam by me shows: Pt seen. Abd pain better. For stress todya. Rec: EGD out pt
[2017-10-31] MEDS: Nitroglycerin 0.4 MG TAB.SUBL SL PRN ×2 (13:05→13:11)
[2017-10-31] MEDS: *HR* OxyCODONE/APAP 5/325 TABLET PO PRN (14:13)
[2017-10-31 15:19] VITALS: BP 159/88
--- NOTE | 2017-10-31 16:45 | Discharge Summary ---
- NOTES TO OUTPATIENT PROVIDER Notes to Outpatient Provider: Patient underwent Pharm Nuclear Stress test: mpression: Pharmacologic stress ECG is non-diagnostic for ischemia due to baseline paced. rhythm. Gated EF = 69%. Small sized, mild to moderate intensity, fixed mid to apical inferior defect. Wall motion appears normal. These findings are suggestive of artifact. Perfusion imaging was negative for ischemia or infarct. He is to undergo outpatient EGD with . He is on Protonix and Carafate Orders not resulted at time of discharge: Pending orders 10/30/17 17:33 NM kendrick perf SPECT multi [NM] Routine Date of Encounter: 10/31/17 Time of Encounter: 16:45 - Discharge Diagnosis (1) Chest pain Priority: Primary Status: Acute Comments: 1 Troponin negative EKG with no ST T wave abnormalities. Pharm nuclear stress completed mpression: Pharmacologic stress ECG is non-diagnostic for ischemia due to baseline paced rhythm. Gated EF = 69%. Small sized, mild to moderate intensity, fixed mid to apical inferior defect. Wall motion appears normal. These findings are suggestive of artifact. Perfusion imaging was negative for ischemia or infarct. patient will follow up with PCP as outpatient He will also undergo EGD as outpatient cont with prilosec and carafate Qualifiers: Chest pain type: precordial pain Qualified Code(s): R07.2 - Precordial pain (2) Abdominal pain Priority: Secondary Status: Acute Comments: patient was seen by GI- He will under EGD as outpatient cont with carafate and prilosec Qualifiers: Abdominal location: upper abdomen, unspecified Qualified Code(s): R10.10 - Upper abdominal pain, unspecified (3) HTN (hypertension) Priority: Secondary Status: Chronic Comments: cont with home medication Qualifiers: Hypertension type: essential hypertension Qualified Code(s): I10 - Essential (primary) hypertension (4) DMII (diabetes mellitus, type 2) Priority: Secondary Status: Chronic Comments: cont home medications Qualifiers: Diabetes mellitus terminal carman insulin use: without jail use Diabetes mellitus complication status: with kidney complications Diabetes mellitus complication detail: with chronic kidney disease Chronic kidney disease stage : stage 2 (mild) Qualified Code(s): E11.22 - Type 2 diabetes mellitus with diabetic chronic kidney disease; N18.2 - Chronic kidney disease, stage 2 (mild) ; N18.2 - Chronic kidney disease, stage 2 (mild) (5) CKD (chronic kidney disease) stage 1, GFR 90 ml/min or greater Priority: Secondary Status: Acute (6) Hypothyroid Priority: Secondary Status: Acute Qualifiers: Hypothyroidism type: acquired Qualified Code(s): E03.9 - Hypothyroidism, unspecified Hospital course: Mr. Kaufman is a 72 year old male past medical history of coronary artery disease diabetes fibromyalgia GERD hyperlipidemia hypertension renal disease thyroid disease pacemaker due to bradycardia. Patient presented to [facility] after experiencing hearing 1 week history of chest pain or shortness of breath. He was hospitalized for one day at [facility] in [place] over the weekend and released later that night. Workup was negative including 2 sets of troponins and EKG. His symptoms persisted so he came back to the ER here at [facility] for further work up evaluation. Initial workup was negative. He does have a history of DVT he did undergo a VQ scan which was low probability for PE. Dopplers of legs were negative for any DVTs. Troponins were negative EKG with no ST-T wave abnormalities echocardiogram with EF of 55-60% moderate concentric left ventricular hypertrophy mild left ventricular diastolic dysfunction mild mitral regurgitation mild tricuspid regurgitation no pulmonary hypertension. Patient underwent a pharm nuclear stress test-perfusion imaging was negative for ischemia or infarct. After returning from stress test patient did have chest pain which was relieved with nitroglycerin I did review the results with Dr. Escalante cardiology and explained he had chest pain after stress test-asked his opinion concerning discharge agreed -with GI follow as well as continuing PPI-up as outpatient -he advised that since patient was seen at outlying facility with negative workup as well as a negative workup here and a negative stress test okay to discharge and follow-up with cardiology. Patient was seen by GI while in hospital and was anticipating EGD however patient did eat this morning GI advised patient to follow-up as outpatient EGD. Patient and family agree. I did review the results of the cardiac stress test with patient and who verbalized understanding. Advised patient to continue with PPI and to follow-up with GI as well as cardiology. Patient verbalized understanding patient is hemodynamically stable at this time he is not expressing any chest pain he is ready for discharge. Discharge discussed with: patient - Time Spent with Patient Total time spent providing and/or coordinating discharge services: - Discharge Medications Home Medications: Allopurinol [Zyloprim 300 MG] 300 mg PO DAILY 07/20/15 [History] Levothyroxine [Synthroid] 100 mcg PO 0630 07/20/15 [History] Prochlorperazine Maleate [Compazine] 10 mg PO Q8HR PRN 07/20/15 [History] GlipiZIDE [Glipizide Xl] 5 mg PO DAILY 08/05/16 [History] OxyCODONE/APAP 5/325 [Percocet 5/325 MG] 1 each PO Q6HR PRN 08/05/16 [History] Ropinirole HCl [Requip] 0.25 mg PO HS 08/05/16 [History] Atorvastatin [Lipitor] 40 mg PO HS 09/27/16 [History] FLUoxetine HCl [Prozac] 20 mg PO DAILY 09/27/16 [History] Aspirin [Adult Aspirin Regimen] 81 mg PO DAILY 10/29/17 [History] Cholecalciferol (D-3) [Vitamin D] 1,000 unit PO DAILY 10/29/17 [History] Fexofenadine HCl [Allergy Relief] 180 mg PO DAILY 10/29/17 [History] Losartan [Cozaar] 25 mg PO DAILY 10/29/17 [History] Multivitamin [One Daily Multivitamin] 1 tab PO DAILY 10/29/17 [History] Pantoprazole Sodium [Protonix] 40 mg PO DAILY 10/29/17 [History] Sucralfate [Carafate] 1 g PO BID 10/29/17 [History] Allergies/Adverse Reactions: 3 Allergy/AdvReac Type Severity Reaction Status Date / Time Iodinated Contrast- Oral and AdvReac Rash Verified 10/29/17 07:10 IV Dye meperidine AdvReac Difficulty Verified 10/29/17 07:10 Breathing morphine AdvReac Confusion Verified 10/29/17 07:10 Penicillins [PCN] AdvReac thrush Verified 10/29/17 07:10 Tetracycline AdvReac Nausea Verified 10/29/17 07:10 Date of admission: 10/29/17 08:11 Primary care physician: Hortencia Guillen Consults: 10/30/17 17:50 Consult to Gastroenterology [CONS] Routine Consulting Provider: [facility] Reason for Consult: ABD pain, nausea, early saity Call Completed: Yes Discharging clinician: Emily Noble Anticipated date of discharge: 10/31/17 - Constitutional Vitals: Temp Pulse Resp BP Pulse Ox 97.8 F 73 17 159/88 94 10/31/17 15:18 10/31/17 15:18 10/31/17 15:18 10/31/17 15:18 10/31/17 15:18 General appearance: Present: cooperative, A&O X 3, pleasant, no acute distress, answers questions appropriately - Head Head exam: Present: atraumatic, normocephalic - Eye Eye exam: Present: PERRL, conjuntiva pink, sclera anicteric Pupils: Present: PERRL - Neck Neck exam general surgery: Present: supple, trachea midline. Absent: lymphadenopathy - Respiratory Respiratory exam: Present: CTAB. Absent: accessory muscle use, rales, rhonchi, wheezes - Cardiovascular Cardiovascular exam: Present: RRR, +S1, +S2. Absent: diastolic murmur, gallop, rubs, systolic murmur - GI/Abdominal GI/Abdominal exam: Present: normal bowel sounds, soft, no peritoneal signs. Absent: distended, tenderness - Extremities Exam Extremities exam: Present: warm, radial pulses palpable and symmetrical. Absent : calf tenderness, cyanotic, pedal edema - Neurological Exam Neurological exam: Present: CN II-XII intact, oriented X3, no focal deficits. Absent: pronater drift, facial droop, speech deficit - Skin Skin exam: Present: dry, intact - Patient Status Disposition: Home, Self-Care Condition: Fair Functional capacity at discharge: independent ambulation Overall status at discharge: patient is back to baseline - Discharge Instructions Instructions: Chest Pain (DC), Hypothyroidism (DC), Diabetes Mellitus Type 2 in Adults (DC), Chronic Hypertension (DC), Anemia (GEN) Follow Up With: Thad Tomlin DO [Partnered Physician] - 11/11/17 1:40 pm Brayan Patel DO [Primary Care Provider] - 11/06/17 9:30 am Cyndee Rodriguez [Partnered Physician] - 11/05/17 2:50 pm - Diet and Activity Activity: resume usual activities as tolerated Diet: diabetic diet
== END 2017-10-31 19:04 | disposition home or self-care (01) ==
LOC: 3BNU 04:18 → EMEROO 04:18 → 3BNU 10:02
PROVIDERS: ADMIT Pediatrics; ATTEND Registered Nurse